=== PATIENT | female | born 1965 | race Caucasian/White ===

== ENCOUNTER 2019-05-29 18:44 | Emergency (ER) | payer OTHER ==
--- OUTSIDE RECORDS SUMMARY | 2019-05-29 18:47 | XMS REPORT ---
:1965 [facility] Address [address] [place] [address] Care Team Providers Name Role Phone SHANESIERRA DAMON Primary Care Provider Unavailable MARIIA SIMS M.D. Unavailable Unavailable CASSY MCCORMACK Unavailable Unavailable IVETT CHEEMA Unavailable Unavailable Problems This patient has no known problems. Allergies, Adverse Reactions, Alerts This patient has no known allergies or adverse reactions. Medications This patient has no known medications. Encounters Start End Encounter Admission Attending Care Care Encounter Date/Time Date/Time Type Type Clinicians Facility Department ID 2016-12-02 2016-12-02 Inpatient [facility] [id number] 16:04:00 16:04:00 2016-11-16 2016-11-16 Emergency [facility] [id number] 01:31:00 01:31:00 2016-10-06 2016-10-10 [place] 1 [place] [facility] [id number] 01:45:00 14:23:00 CASSY 2016-09-13 2016-09-13 Outpatient 3 CHRISTO CHEEMA [id number] 06:12:00 08:12:00 IVETT 2016-08-09 2016-08-09 Outpatient 3 CHRISTO CHEEMA [id number] 05:55:00 05:55:00 IVETT Results Test Description Test Time Test Comments Text Results Atomic Results Result Comments HEPATITIS C ANTIBODY 2018-02-13 14:43:00 Test Item Value Reference Range Comments HCV (test code=HCV) NEGATIVE NEGATIVE Hepatitis C Antibody test is for screening purposes only. All reactives will be confirmed by additional testing. QUANTIFERON TB [id number] 11:48:00 Test Item Value Reference Range Comments TBQF (test code=TBQF) NEGATIVE NEGATIVE TESTING [place] [address] (RESULTS AVAILABLE UNDER SEPARATE COVER) HEPATITIS B SURFACE [id number] 13:48:00 Test Item Value Reference Range Comments HBSAB (test code=HBSAB) NEGATIVE NEGATIVE HEPATITIS B SURFACE ANTIBODY INTERPRETATION: NEGATIVE: <5.00 MIU/ML ANTI-HBS. PATIENT IS PRESUMED TO BE NOT IMMUNE TO INFECTION WITH HBV. INDETERMINATE: >5-<10 MIU/ML. UNABLE TO DETERMINE IF ANTI-HBs IS PRESENT AT LEVELS CONSISTANT WITH IMMUNITY. PATIENT'S IMMUNE STATUS SHOULD BE FURTHER ASSESSED BY CONSIDERING OTHER CLINICAL INFORMATION OR RETESTING ANOTHER SPECIMEN DRAWN AT A LATER TIME. POSITIVE: ANTI-HBS DETECTED AT >10 MIU/ML. PATIENT IS CONSIDERED TO BE IMMUNE TO INFECTION WITH HBV. IT HAS NOT BEEN DETERMINED WHAT THE CLINICAL SIGNIFICANCE IS FOR VALUES GREATER THAN OR EQUAL TO 12 MLU/ML OTHER THAN THE INDIVIDUAL IS CONSIDERED TO BE IMMUNE TO HBV INFECTION. HEPATITIS B SURF [id number] 13:48:00 Test Item Value Reference Range Comments HEPBSAG (test code=HEPBSAG) NEGATIVE NEGATIVE Hepatitis B Surface Antigen is for screening purpose only. All reactives will be sent to reference lab for confirmation. 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) CHLORIDE (test code=CL) 101 MMOL/L 98-107 CO2 (test code=CO2) 28 MMOL/L 22-30 BUN (test code=BUN) 14 MG/DL 7-17 CREA (test code=CREA) 0.6 MG/DL 0.7-1.2 GLUCOSE (test 94 MG/DL 70-99 Fasting glucose normal code=GLUCOSE) <100 MG/DL- [employer] recommendation CALCIUM (test 9.7 MG/DL 8.4-10.2 code=CABLOOD) TOTPROT (test 8.5 G/DL 6.3-8.2 code=TOTPROT) ALBUMIN (test 4.9 G/DL 3.5-5.0 code=ALBSERUM) BILITOT (test 0.3 MG/DL 0.2-1.3 code=BILITOT) AST (test code=AST) 36 U/L 15-46 PHOSALK (test 93 U/L 38-126 code=PHOSALK) ALT (test code=ALT) 41 U/L 13-69 GFR (test code=GFR) 112 mL/min/1.73m2 A GFR of >90 mL/min/1.73m2 is considered normal. SEDIMENTATION [id number] 12:33:00 Test Item Value Reference Range Comments SED RATE (test code=ESR) 29 MM/HR 0-20 [id number] 12:04:00 Test Item Value Reference Range Comments WBC (test code=WBC) 9.2 K/UL 3.5-10.9 RBC (test code=RBC) 4.02 M/UL 4.0-5.0 HGB (test code=HGB) 13.3 G/DL 11.5-15.5 HCT (test code=HCT) 37.8 % 34-46 MCV (test code=MCV) 94.0 FL 80-98 MCH (test code=MCH) 33.1 PG 28-32 MCHC (test code=MCHC) 35.2 G/DL 32.5-36.5 RDW (test code=RDW) 13.2 % 11.5-14.5 PLT (test code=PLT) 334 K/UL 150-450 MPV (test code=MPV) 10.6 FL 7.4-10.4 MANDIFF (test code=MANDIFF) NO SCAN (test code=SCAN) NO NEUT% (test code=NEUT%) 64.9 % 40-75 LYMPH% (test code=LYMPH%) 24.3 % 24-44 MONO% (test code=MONO%) 8.3 % 0-13 EOS% (test code=EOS%) 1.7 % 0-4 BASO % (test code=BASO%) 0.3 % 0-2 IG% (test code=IG%) 0.5 % 0-1 IG%=Metamyelocytes, Myelocytes, and Promyelocytes. (Immature neutrophils not including "bands".) > 3% IG indicates risk of sepsis NRBC% (test code=NRBC%) 0 /100 WBC ABS NEUT (test code=NEUT) 5.9 K/UL 1.2-7.2 XR ABDOMEN [id number] 08:05:16Information: Small bowel obstruction and nasogastric tube.Abdomen 2 viewsIn comparison to the prior view the abdomen dated 12/03/2016 there hasbeen slight decrease in the gaseous distention of the smallbowel.Residual gas, fecal matter and contrast medium is demonstrated withinthe colon. The nasogastric tube is unchanged in position. Surgical clipswithin the right upper quadrant of the abdomen and lumbar spinedecompression laminectomy and fusion is again noted.IMPRESSION:1. Mild further decrease in the gaseous distention of the small bowel.2. No change in the position of the nasogastric tube. See above.XR ABDOMEN KUB [id number] 05: 30:54History: Nasogastric tube placement, small bowel obstructionABDOMEN KUB, at 2202 hours:COMPARISON: Abdominal x-ray done earlier the same day.A nasogastric tube is now seen with the tip in the area of the distalduodenum.There is a mild decrease in small bowel distention. Air is seen innondistended colon. Some contrast material is seen in the colon, relatedto a recent CT scan. Contrast material is alsoseen in the urinarybladder.Fusion rods are seen in the lower lumbar spine.IMPRESSION:1. Nasogastric tube as described.2. Mild decrease in small bowel distention.Preliminary report was faxed to the medical surgical nursing station byDr. Gregory at 2221 hours.44254& amp;PELVIS W/[id number] 16:25:07CT ABDOMEN AND CT PELVIS WITH CONTRAST: HISTORY: Abdominal pain, nausea and vomiting, hernia repair on 2016COMPARISON: CT of 01/29/2016. Abdominal x-ray done earlier today.Multiple transverse imageswere obtained through the upper abdomen andthrough the pelvis during rapid intravenous administration of 100 mL ofIsovue-300 contrast material. Oral contrast material was alsoadministered. Radiation reduction was achieved by using automaticexposure control, adjusting the mA according to the patient's size.A calcified granuloma seen in the right lower lobe. Mild scarring isseen in the left lower lobe.A nasogastric tube is coursing into thefundus of the stomach.No focal abnormalities are seen in the liver. The gallbladder has beensurgically removed. The spleen is unremarkable. The pancreas has anormal appearance. No abnormalities are seen in the kidneys. No enlarged lymph nodes areseen in the upper abdomen or pelvis.There is considerable distention of the small bowel. The patient appearsto havehad a right colon resection, with anastomotic sutures seen onthe right side of the abdomen. The residual colon does not appeardistended. A moderate amount of fecal material is seen in the colon. Asmallamount of ascites is seen in the upper abdomen and pelvis.There is an elongated density in the subcutaneous soft tissues of theleft mid abdominal wall, unchanged since the previous study. This canrepresent scar tissue. No abdominal wall hernia is identified at thistime by CT.No masses are seen in the pelvis. Postoperative changes are seen in thelower lumbar spine.IMPRESSION: 1. Considerable distention of the small bowel that can indicate apartial small bowel obstruction, unchanged since the previous abdominalfilms.2. Small amount of ascites. 3. Evidence of previous graft right colectomy.XR ABDOMEN KUB [id number] 11:37:59History: Nasogastric tube placement, small bowel obstructionABDOMEN KUB:COMPARISON: Abdominal film done earlier the same day.A nasogastric tube is now seen with the tip in the area of the fundus ofthe stomach.Persistent small bowel distention is observed. Some air is seen inundistended colon.Evidence of previous lumbar surgery is again noted.IMPRESSION:Nasogastric tube coursing into the stomach area.Persistent small boweldistention.XR ABDOMEN [id number] 08:32:14HISTORY: Small bowel obstruction, nasogastric tubeABDOMEN COMPLETE (supine and upright): COMPARISON: 12/02/2016Supine and upright views were obtained.A nasogastric tube is now seen with the tip in the area of thegastroesophageal junction.There has been considerable decrease in small bowel distention, withmild residual distention remaining. Air is seen in nondistended colon..No free air or mass effect isseen. No abnormal calcifications are noted. Surgical clips are seen in theright upper quadrant.Postsurgical changes are seen in the lumbar spine.IMPRESSION: 1. Improvement in small bowel distention.2.Nasogastric tube as described.Report was called to Sushma ATKINSON of the medical surgical nursing stationby Dr. Pederson at 0836 hours on 12/03/2016.XR ABDOMEN [id number] 10 :09:50History:: Abdominal pain and constipationAbdomen 2 viewsCorrelation was made with the patient's prior views of the abdomen dated01/29/2016 demonstrating multiple gas distended loops of small bowel withmultiple air-fluid levels. Some residual gas and fecal matter notedthroughout the colon. Nonspecific gastric air -fluid level identified. Nogross free intraperitoneal air is noted. Surgical clips are identifiedwithin the right upper quadrant of the abdomen. Lumbar spine fusion isagain demonstrated.IMPRESSION:1. Multiple gas distended loops of small bowel with multiple air-fluidlevels highly suspicious for at least a partial mechanical obstruction2. Retained fecal matter and gas within the colon3. Nonspecific gastric air-fluid level4. Status post cholecystectomy5. Status post lumbar spine fusion.XR CHEST SGL 1V, [id number] 07:24:43XR CHEST SGL 1V, FRONTALDIAGNOSIS: Chest painThe heart and mediastinum are stable. A left lower lobeopacity hasdeveloped since 06/20/2014, pneumonia would be a prime consideration.The remainder the chest is normal.IMPRESSION: Left lower lobe opacity, most likely pneumonia developingsince 06/20/2014.CT ABDOMEN/ PELVIS [id number] 00:58:00[address] [address]HJUOXBQHHO IMAGING REPORTPatient Name: IGOR LOW SDate of Service: 42-11-7986Fka: 51 Sex: F Order #: [id number] Room: ERSDOB : 1965 X-Ray Number: [id number] Record Number: [id number] Hospital Number: [id number] Physician: KANWAL PENNOrdering Physician : ZULMA DELUCA abdomen and pelvis withIV contrast 2359 hours 2016HISTORY: Acute abdominal pain and distention, history of rheumatoidarthritis , multiple prior abdominal surgeries, previous partial bowelresectionCOMPARISON : CT scan from10/05/2016FINDINGS: There is no free fluid and no appreciable acute inflammation. Nomass or abscess is seen. There is no significant bowel dilation. There aremoderate colonic feces without impaction or fecal stasis. Gallbladder isabsent. Bile ducts and pancreas appear normal. Both kidneys excretepromptly. There are background chronic changesIMPRESSION: No adverse changeElectronically Signed By: Graham Mejia M.D., 10/17/2016 12:55 AMLegally authenticated by TATY SHAIKH 2016-10-17 00:55:36ABDOMEN 2 [id number] 23:48:00[place] [id number] IMAGING REPORTPatient Name: IGOR LOW SDate of Service: 10-16Age: 51 Sex: F Order #: [id number] Room: ERSDOB: 1965 X-Ray Number: [id number] Record Number: [id number] Hospital Number: [id number] Physician: KANWAL PENNOrdering Physician: Adria DELUCA 2 views 2253 hours10/16/2016HISTORY: Abdominal pain and distention, prior spine surgery and herniasurgeryCOMPARISON: 10/08/2016FINDINGS: There is moderate bowel gas, mainly in the large bowel, withoutsignificant dilation.A few air-fluid levels are visualized. There arescattered feces. There is no free air. There has been spine surgery, alsocholecystectomy.IMPRESSION: The bowel gas pattern is nonspecific but does not suggestobstructionElectronically Signed By: Graham Chan M.D., 10/16/2016 11:46 PMLegally authenticated by TATY SHAIKH 2016-10-16 23:46:21ABDOMEN 2 [id number] 12:35:00[place] [id number] IMAGING REPORTPatient Name: IGOR LOW APOLLOate of Service: 08-09-5394Lnm: 51 Sex: F Order #: [id number] [facility] 2NEDOB: 1965 X-Ray Number: [id number] Record Number: [id number] Hospital Number: [id number] Physician: Lili MCCORMACK Physician: No SILVERMAN 2 views 11: 43AMComparisons: 02/03/2016History: Abdominal pain, possible small bowel obstruction versus ileus.Findings:Bowel gas pattern is nonspecific, nonobstructive.There is no free air or mass effect.No definite renal or ureteral calcifications are seen overlying the kidneysor expected course of ureters.There are postoperative changes of the lumbar spine.Impression:No definite acute intra-abdominal abnormality.Electronically Signed By: Jeromy Michelle M.D., 10/08/2016 12:32 PMLegally authenticated by MAURICE NUÑEZ 2016-10-08 12:32:33CT ABDOMEN/PELVIS [id number] 22:59:[address] [address]KMCZSSECJZ IMAGING REPORTPatient Name : IGOR LOW SDate of Service: 34-37-1532Isx: 51 Sex: F Order #: [id number] Room: [facility]: 1965 X-Ray Number: [id number] Record Number: [id number] Hospital Number: [id number] Physician: SONI HAYES - Ordering Physician: James VASQUEZ CT abdomen and pelvis with IV contrast at 2201 hoursHistory: Abdomen and back pain with constipation. Recent hernia repair.Prior cholecystectomy, hysterectomy, appendectomy and partial colectomy.Inflammatory bowel syndrome. Prior pain pump placement and removal.Comparison: 09/25/2016This CT exam was performed using one or more of the following dosereduction techniques: Automated exposure control, adjustment of the mAand/or kV according to patient size, or use of iterative reconstructiontechnique.Heart size is stable. Right lung base calcified granuloma is again seen.There are stable postsurgical and degenerative changes of the lumbar spine.Postsurgical changes at the left mid abdomen subcutaneous soft tissuesarealso again noted.The gallbladder has been removed. Other intra- abdominal organs are stable.Some fluid is scattered throughout small bowel loops. Some of the proximalsmall bowel loops are mildly dilated. There is evidence of prior bowelsurgery. Some stool is scattered throughout the remaining colon.No clearpoint of high-grade bowel obstruction is seen at this time. Fluid in bowelloops may be due to an element of gastroenteritis.A few small lymph nodes are scattered in the mesenteric fat once again.These are nonspecific.No free air or fluid.Urinary bladder is within normal limits. Ovaries may have been removed withthe uterus.Moderate scattered atherosclerotic disease is present.IMPRESSION:Fluid throughout mildly distended bowel loops which may be due to anelement of gastroenteritis or ileus. Mild fecal stasis. If there is furtherconcern, short interval follow-up may be helpful.Other stable findings as discussed.Electronically Signed By: Timi Gonzalez M.D., 2016 10:57 PMLegally authenticated by RICARDO MICHAUD 2016-10-05 22:57:24Z-ORG SCREEN MAMMO TAMEKA AND [id number] 13:44:[address] [address]HURGBCCWPL IMAGING REPORTPatient Name : IGOR LOW SDate of Service: 29-14-8210Sxf: 51 Sex: F Order #: [id number] Room: OPODOB: 1965 X-Ray Number: [id number] Record Number: [id number] Hospital Number: [id number] Physician: Anand HOPPER Physician: LILO HOPPER DIGITAL SCREENING MAMMOGRAPHY WITH TOMOSYNTHESIS AND CADCOMPARISON: None available.TECHNIQUE: Craniocaudal and oblique mediolateral tomosynthesis wasperformed. Craniocaudal 2-D images were also obtained. CAD data areevaluated.FINDINGS: The breasts are heterogeneously extremely dense, which limitsmammographic sensitivity. There are small benign calcificationsbilaterally. No obvious mass lesions are seen in this dense irregularbackground.IMPRESSION:No mammographic evidence of malignancy.Recommendation: Routine screeningmammography in one yearBI-RADS CATEGORY 2: Benign findings.FINANCIAL AID ADVISOR: RT Roxanna ALFARO)PLEASE NOTE:1. In up to 10% of patients, cancers are not visible on mammography.2. If a suspicious lump is palpated, biopsy should not be deferredbecause of a negative mammogram.MAMMOGRAPHY AT [facility] IS ACCREDITED BY THE [employer] COLLEGE OFRADIOLOGYTHANK YOU FOR YOUR OUTPATIENT REFERRALjhbElectronically Signed By: Bert Malagon M.D., 09/28/2016 1:42 PMLegally authenticated by AURLEIO SOSA 2016-09-28 13:42:08CT ABDOMEN/PELVIS [id number] 17:12:[address] [id number] IMAGING REPORTPatient Name: IGOR LOW of Service: 38-89-9226Nwz: 51 Sex: F Order #: [id number] [facility] 1965 [facility] Number: [id number] Record Number: [id number] Hospital Number: [id number] Physician: Leni WALLing Physician: GRIFFIN PADILLA abdomen and pelvis with contrast, 09/25/2016, 1553 hoursHistory: Abdominal pain. Status post surgery. Recent hernia mesh placement.Colon resection.Technique: IV contrast. Axial tomographic images are performed. [place] coronal formatted images are also reviewed. This CT exam was performedusing one or more of the following dose reduction techniques: Automatedexposure control, adjustment of the MA and/ or KV according to patient sizeor use of iterative reconstruction technique.Comparison: 08/16/2016.Findings: Since prior, there is presumed periumbilical ventral herniarepair with placement of possible mesh. Small pancake shaped hypodensefluid collection has developed within the mesh/ subcutaneous periumbilicalcompartment measuring on the order of 7.1 x 1.5 x 6.8 cm. No gas formationis noted. No significant mass effect is seen. Stable presumed soft tissuescarring projects within the subcutaneous fat of the left lateralperiumbilical region.Postsurgical changes of presumed subtotal colectomy are evident as previousstudy. 4.1 cm second portion duodenal diverticulum is noted. There has beenprevious cholecystectomy with slight stable prominence of the 12 mm commonduct and some mild intrahepatic ductal prominence. No choledocholithiasisis evident. Liver, spleen, pancreas, adrenal glands and kidneys areotherwise maintained. There has been previous hysterectomy and presumedbilateral oophorectomy. Bladder is preserved.No lymphadenopathy, ascites nor free air is noted. There is mild tomoderate atherosclerotic calcification involving the normal size abdominalaorta and iliofemoral artery compartments.Posterior laminectomy and posterior spinal fusion changes are presentinvolving the L3-S1 level. There is stable grade 1 L3-4 anterolisthesis.Lung bases show calcified granuloma within the right lower lobe anteriorly.Some mild linear atelectasis and/or scarring of both lower lobes is seen.Impression:1. Presumed interval periumbilical ventral hernia repair with placement ofmesh. Small pancake shaped fluid projects within the mesh/ periumbilicalsubcutaneous fat compartment. Process could represent liquefying hematomaor postoperative seroma. Correlate clinically to rule out inflammatoryetiology. No obvious gas is noted however.2. Otherwise background chronic findings as discussed above.Electronically Signed By: Bert Crawley M.D., 09/25/2016 5:10 PMLegally authenticated by JOSE MIGUEL KEARNEY 2016-09-25 17:10:[id number] 13:16:00QRS Interval: 103msQT Interval: 390msQTC Interval : 442msP Bradley: 63degQRS Bradley: 53degT Wave Bradley: 49degP-R Interval: 198msecRR Interval: 779msecHeart Rate: 77bpmI 40 Bradley: 60degT 40 Bradley: 45degST Bradley: 47degEKG Severity: - NORMAL ECG -REPORT:Sinus rhythmHEPATITIS C ANTIBODY [id number] 08:54:00 Test Item Value Reference Range Comments SCRN HCV (test code=SCRN NEGATIVE NEGATIVE Hepatitis C Antibody test is for HCV) screening purposes only. All reactives will be confirmed by additional testing. ER SCREEN FOR HIV 08:15:00 Test Item Value Reference Range Comments HIV 1/2 AB (test NONREACTIVE NONREACTIVE This test is used for SCREENING code=SCRN HIV) purposes only. All reactive results are prelimenary and confirmation results will follow. CDIFF AMPLIFIED [id number] 12:58:00 Test Item Value Reference Range Comments C DIFFICILE TESTING ON NEGATIVE NEGATIVE PSEUDOMEMBRANOUS COLITIS, BY STOOL (test code=CDIFF) DEFINITION, IS DIARRHEA, IN PATIENTS OLDER THAN 6 MONTHS OF AGE, CAUSED BY LONG-TERM ANTIBIOTIC EXPOSURE. NON-DIARRHEAL STOOLS WILL NOT BE TESTED. C.DIFF LOT # (test [id number] code=CDIFFLOT) C. DIFF EXPIRATION DATE 07-08-2017 (test code=CDIFFEXP) CT ABDOMEN/PELVIS [id number] 15:02:[address] [id number] IMAGING REPORTPatient Name : IGOR LOW SDate of Service: 21-08-8830Xmh: 51 Sex: F Order #: [id number] [facility] 1965 X-Ray Number: [id number] Record Number: [id number] Hospital Number: [id number] Physician: Paramjit DESHPANDEing Physician: LIZA DESHPANDE abdomen pelvis with contrast 08/16/2016:Abdominal distention, cramping, IBS. Colon resection.IV contrast administered.Axial tomographic images were obtained. Sagittal and coronal reformatimages were provided. This CT exam was performed using one or more of thefollowing post reduction techniques: Automated exposure control, adjustmentof the MA and/or KV according to the patient's size, or use of iterativereconstruction technique.Comparison made to 04/11/2016 CT abdomen pelvis.There is a calcified granuloma laterally in the right middlelobe. There isquestionable 6 mm noncalcified pleural-based nodule posteriorly in the leftlower lobe,axial image 11, which was not evident on the prior study.The gallbladder is absent. The common bile duct and proximal intrahepaticbiliary radicles appear mildly prominent. No abnormality of the spleen,stomach, pancreas or adrenal glands. Small cortical cyst midpole leftkidney. Right kidney unremarkable. No aneurysm or adenopathy. There isatherosclerotic calcification.There are multiple fluid- filled loops of small bowel in the central andleft abdomen, which appear mildly dilated. There is fluid and gas in thecolon. The gas pattern is nonspecific. Adynamic ileus is favored. No bowelobstruction identified at this time.Postsurgical and degenerative changes seen in the spine. The uterus hasbeen are made.A 5.8 cm ovoid or linear focus of abnormal density is seen in thesubcutaneous tissue in the left anterior abdomen at the level of theumbilicus. This shows no significant change since 04/11/2016 CT scan. Thismay be related to postsurgical scarring or previous trauma, doubtfulclinical significance.Opinion:1. Cholecystectomy has been performed since April 14, 2016. Mildprominence of common bile duct and proximal intrahepatic biliary tree.Recommend laboratory correlation.2. Mildly dilated jejunum, fluid seen in the colon and small bowel. Mildileus is favored. Consider short-term follow-up.3. 6 mm noncalcified pleural-based nodular density posterior left lowerlobe, axial image 11. This is new compared to 2015. This couldrepresent a small area of atelectasis or scar. A significant pulmonarynodule is thought less likely but not entirely excluded. Consider chest CTto evaluate for additional pulmonary nodules.Electronically Signed By: Zeke Guerra M.D., 08/16/2016 2:59 PMLegally authenticated by REBECCA PALACIOS 08-16 14:59:[id number] 14:29:00 Test Item Value Reference Range Comments GLUCOSE (test code=URGLU) NEGATIVE MG/DL NEG-100 BILIRUBN (test code=URBILI) SMALL NEGATIVE KETONE (test code=URKET) 80 MG/DL NEGATIVE BLOOD (test code=URBLD) NEGATIVE UR PH (test code=URPH) 6.0 5.0-7.5 PROTEIN (test code=URPRO) NEGATIVE MG/DL NEGATIVE NITRITES (test code=URNIT) NEGATIVE NEGATIVE UROBILINGEN (test code=URURO) 0.2 EU/DL 0.2-1.0 LEUKOCYT (test code=URLEU) SMALL NEGATIVE UA COLOR (test code=UA COLOR) YELLOW YELLOW CLARITY (test code=CLARITY) CLOUDY CLEAR SP GRAV (test code=URSPGRAV) 1.060 1.000-1.025 UAMICRO (test code=UAMICRO) YES WBC (test code=URWBC) 26 /HPF 0-5 RBC (test code=URRBC) 1 /HPF 0-2 CASTS (test code=CAST) 10 /LPF 0-3 UR EPI (test code=EPI) 21 /LPF BACTERIA (test code=BACTERIA) NEGATIVE NONE [id number] 12:40:00 Test Item Value Reference Range Comments SODIUM (test code=NA) 140 MMOL/L 137-145 K+ (test code=KSERUM) 3.9 MMOL/L 3.5-5.1 PLEASE NOTE NEW REFERENCE RANGE(S) IN EFFECT EFFECTIVE 01/28/2010 - 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) CHLORIDE (test code=CL) 103 MMOL/L 98-107 CO2 (test code=CO2) 21 MMOL/L 22-30 BUN (test code=BUN) 12 MG/DL 7-17 CREA (test code=CREA) 0.7 MG/DL 0.7-1.2 GLUCOSE (test 77 MG/DL 70-99 Fasting glucose normal code=GLUCOSE) <100 MG/DL- [employer] recommendation CALCIUM (test 8.9 MG/DL 8.4-10.2 code=CABLOOD) TOTPROT (test 7.7 G/DL 6.3-8.2 code=TOTPROT) ALBUMIN (test 4.5 G/DL 3.5-5.0 code=ALBSERUM) BILITOT (test 0.5 MG/DL 0.2-1.3 code=BILITOT) AST (test code=AST) 89 U/L 15-46 PHOSALK (test 96 U/L 38-126 code=PHOSALK) ALT (test code=ALT) 58 U/L 13-69 GFR (test code=GFR) 94 mL/min/1.73m2 A GFR of >90 mL/min/1.73m2 is considered normal. [id number] 12:40:00 Test Item Value Reference Range Comments LIPASE (test code=LIPA) 57 U/L 23-300 [id number] 12:16:00 Test Item Value Reference Range Comments WBC (test code=WBC) 4.0 K/UL 3.5-10.9 RBC (test code=RBC) 4.14 M/UL 4.0-5.0 HGB (test code=HGB) 12.7 G/DL 11.5-15.5 HCT (test code=HCT) 38.3 % 34-46 MCV (test code=MCV) 92.5 FL 80-98 MCH (test code=MCH) 30.7 PG 28-32 MCHC (test code=MCHC) 33.2 G/DL 32.5-36.5 RDW (test code=RDW) 13.8 % 11.5-14.5 PLT (test code=PLT) 228 K/UL 150-450 MPV (test code=MPV) 9.9 FL 7.4-10.4 MANDIFF (test code=MANDIFF) NO SCAN (test code=SCAN) NO NEUT% (test code=NEUT%) 70.7 % 40-75 LYMPH% (test code=LYMPH%) 16.8 % 24-44 MONO% (test code=MONO%) 11.6 % 0-13 EOS% (test code=EOS%) 0.2 % 0-4 BASO % (test code=BASO%) 0.5 % 0-2 IG% (test code=IG%) 0.2 % 0-1 IG%=Metamyelocytes, Myelocytes, and Promyelocytes. (Immature neutrophils not including "bands".) > 3% IG indicates risk of sepsis NRBC% (test code=NRBC%) 0 /100 WBC ABS NEUT (test code=NEUT) 2.9 K/UL 1.2-7.2
[2019-05-29] MEDS ORDERED: ALBUTEROL 2.5 MG/3 ML NEB SOL ONE (19:36)
[2019-05-29] MEDS ORDERED: IPRATROPIUM BROM 0.5MG/2.5ML ONE (19:36)
--- NOTE | 2019-05-29 20:14 | RAD REPORT ---
EXAM DESCRIPTION: RAD - Chest Single View - 05/29/2019 7:57 pm CLINICAL HISTORY: CHEST PAIN Chest pain. COMPARISON: Chest Pa And Lat (2 Views) dated 01/22/2019 FINDINGS: Portable technique limits examination quality. Small calcified granuloma seen in the right lung base. Mild atelectasis suspected left lung base. The lungs otherwise clear. The heart is upper limit of normal in size. No displaced fractures.
--- NOTE | 2019-05-29 20:26 | ER ---
Nurse's Notes [facility] Name: Chanell Sanders Age: 53 yrs Sex: Female : 1965 Arrival Date: 05/29/2019 Time: 18:48 Bed 20 Private MD: Diagnosis: Acute bronchitis;Acute bronchitis, unspecified Presentation: 05/29 19:04 Presenting complaint: Nonproductive cough, SOB, chest congestion, sinus congestion, hb headache, nausea, body aches, and diarrhea x 1 week. Denies fever. Transition of care: patient was not received from another setting of care. Onset of symptoms was May 23, 2019. Risk Assessment: Do you want to hurt yourself or someone else? Patient reports no desire to harm self or others. Care prior to arrival: None. 19:04 Method Of Arrival: Ambulatory 19:04 Acuity: MARISOL 4 hb 19:45 Initial Sepsis Screen: Does the patient meet any 2 criteria? No. Patient's initial sepsis screen is negative. Does the patient have a suspected source of infection? Yes: Productive cough/pneumonia. 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 - Social history:: Smoking status: Patient uses tobacco products, smokes one-half pack cigarettes per day. - Ebola Screening: : No symptoms or risks identified at this time. Screenin:42 Abuse screen: Denies threats or abuse. Denies injuries from another. Nutritional wh screening: No deficits noted. Tuberculosis screening: No symptoms or risk factors identified. Fall Risk None identified. Assessment: 19:42 General: Appears in no apparent distress. Behavior is calm, cooperative, appropriate wh for age. Pain: Denies pain. Neuro: Level of Consciousness is awake, alert, obeys commands, Oriented to person, place, time, situation, Appropriate for age Reports headache. Neuro: Reports headache from coughing. Cardiovascular: Heart tones S1 S2 Capillary refill < 3 seconds. Respiratory: Reports cough that is congestion Airway is patent Respiratory effort is even, unlabored, Respiratory pattern is regular, symmetrical, Breath sounds are clear bilaterally. GI: Abdomen is flat, non-distended. : No signs and/or symptoms were reported regarding the genitourinary system. EENT: Throat is pink. Derm: Skin is intact, is healthy with good turgor, Skin is pink, warm \T\ dry. normal. Musculoskeletal: Circulation, motion, and sensation intact. 20:33 Reassessment: Patient appears in no apparent distress at this time. No changes from previously documented assessment. Patient and/or family updated on plan of care and expected duration. Pain level reassessed. Patient is alert, oriented x 3, equal unlabored respirations, skin warm/dry/pink. Patient states feeling better. Vital Signs: 19:05 BP 183 / 86; Pulse 88; Resp 20; Temp 97.7; Pulse Ox 98% on R/A; Weight 72.57 kg; Height hb 5 ft. 8 in. (172.72 cm); Pain 3/10; 19:45 BP 102 / 79; Pulse 82; Resp 18; Pulse Ox 98% on R/A; wh 19:05 Body Mass Index 24.33 (72.57 kg, 172.72 cm) hb ED Course: 18:48 Patient arrived in ED. mr 19:05 Triage completed. hb 19:05 Arm band placed on. hb 19:20 Nando Lagos is Primary Nurse. wh 19:25 Jose Raul Torres MD is Attending Physician. tw4 19:44 Patient has correct armband on for positive identification. Bed in low position. Call light in reach. Side rails up X 1. Pulse ox on. NIBP on. 19:57 CXR XRAY In Process Unspecified. EDMS 20:33 No provider procedures requiring assistance completed. Patient did not have IV access during this emergency room visit. Administered Medications: 19:37 Drug: DuoNeb (3:1) (2.5 mg - 0.5 mg) 3 ml Route: Nebulizer; wh 20:22 Follow up: Response: No adverse reaction Outcome: 20:25 Discharge ordered by . tw4 20:33 Discharged to home ambulatory. wh 20:33 Condition: stable 20:33 Discharge instructions given to patient, Instructed on discharge instructions, follow up and referral plans. medication usage, POC Acute Bronchitis Demonstrated understanding of instructions, follow-up care, medications, POC Prescriptions given X 4. 20:34 Patient left the ED. Signatures: Dispatcher [employer] Sandra Fiore Heather, RN RN hb Habalo, Winsy Jose Raul Torres MD MD tw4
--- NOTE | 2019-05-29 20:26 | EDPHYS ---
Physician Documentation [facility] Name: Chanell Sanders Age: 53 yrs Sex: Female : 1965 Arrival Date: 05/29/2019 Time: 18:48 Bed 20 Private MD: ED Physician Jose Raul Torres HPI: 05/29 20:20 This 53 yrs old Female presents to ER via Ambulatory with complaints of tw4 Congestion, Breathing Difficulty. 20:20 The patient has shortness of breath with light activity. tw4 20:20 Onset: The symptoms/episode began/occurred 1 week(s) ago. Duration: The symptoms are tw4 continuous. The patient's shortness of breath is aggravated by coughing, is alleviated by nothing. Associated signs and symptoms: Pertinent positives: diarrhea, body aches. Severity of symptoms: At their worst the symptoms were moderate in the emergency department the symptoms are unchanged. The patient has not experienced similar symptoms in the past. 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 - Social history:: Smoking status: Patient uses tobacco products, smokes one-half pack cigarettes per day. - Ebola Screening: : No symptoms or risks identified at this time. ROS: 20:20 Cardiovascular: Negative for chest pain, palpitations, and edema, Abdomen/GI: Negative tw4 for abdominal pain, nausea, vomiting, diarrhea, and constipation, Back: Negative for injury and pain, MS/Extremity: Negative for injury and deformity, Skin: Negative for injury, rash, and discoloration, Neuro: Negative for headache, weakness, numbness, tingling, and seizure. 20:20 Constitutional: Positive for body aches, fatigue, malaise, Negative for chills, fever, weight loss. 20:20 Respiratory: Positive for cough, "sounds productive", shortness of breath, Negative for dyspnea on exertion, hemoptysis, orthopnea, pleurisy, sputum production. Exam: 20:20 Constitutional: This is a well developed, well nourished patient who is awake, alert, tw4 and in no acute distress. Head/Face: Normocephalic, atraumatic. Chest/axilla: Normal chest wall appearance and motion. Nontender with no deformity. No lesions are appreciated. Cardiovascular: Regular rate and rhythm with a normal S1 and S2. No gallops, murmurs, or rubs. Normal PMI, no JVD. No pulse deficits. 20:20 Abdomen/GI: Soft, non-tender, with normal bowel sounds. No distension or tympany. No guarding or rebound. No evidence of tenderness throughout. Back: No spinal tenderness. No costovertebral tenderness. Full range of motion. MS/ Extremity: Pulses equal, no cyanosis. Neurovascular intact. Full, normal range of motion. Neuro: Awake and alert, GCS 15, oriented to person, place, time, and situation. Cranial nerves II-XII grossly intact. Motor strength 5/5 in all extremities. Sensory grossly intact. Cerebellar exam normal. Normal gait. 20:20 Respiratory: the patient does not display signs of respiratory distress, Respirations: normal, Breath sounds: wheezing: Vital Signs: 19:05 BP 183 / 86; Pulse 88; Resp 20; Temp 97.7; Pulse Ox 98% on R/A; Weight 72.57 kg; Height hb 5 ft. 8 in. (172.72 cm); Pain 3/10; 19:45 BP 102 / 79; Pulse 82; Resp 18; Pulse Ox 98% on R/A; wh 19:05 Body Mass Index 24.33 (72.57 kg, 172.72 cm) hb MDM: 19:29 Patient medically screened. tw4 20:20 Differential diagnosis: reactive airway disease. Antibiotic administration: The patient tw4 is discharged and will get outpatient antibiotics, Zithromax. Data reviewed: vital signs, nurses notes. Data reviewed: lab test result(s), Flu: negative. Data interpreted: Pulse oximetry: Interpretation: normal. Counseling: I had a detailed discussion with the patient and/or guardian regarding: the historical points, exam findings, and any diagnostic results supporting the discharge/admit diagnosis, lab results, radiology results. Special discussion: I discussed with the patient/guardian in detail that at this point there is no indication for admission to the hospital. It is understood, however, that if the symptoms persist or worsen the patient needs to return immediately for re-evaluation. 05/29 19:27 Order name: Flu tw4 05/29 19:27 Order name: CXR XRAY tw4 Administered Medications: 19:37 Drug: DuoNeb (3:1) (2.5 mg - 0.5 mg) 3 ml Route: Nebulizer; 20:22 Follow up: Response: No adverse reaction Disposition: 05/29/19 20:25 Discharged to Home. Impression: Acute bronchitis, Acute bronchitis, unspecified. - Condition is Stable. - Discharge Instructions: Acute Bronchitis, Adult. - Prescriptions for Tessalon Perles 100 mg Oral Capsule - take 1 capsule by ORAL route every 8 hours As needed; 15 capsule. Zithromax Z- Chauncey 250 mg Oral Tablet - take 1 tablet by ORAL route as directed for 5 days Day 1 - take two (2) tablets one time. Day 2, 3, 4 , 5 take one (1) tablet once daily.; 6 tablet. Albuterol Sulfate 90 mcg/actuation - inhale 1-2 puff by INHALATION route every 4-6 hours; 1 Inhaler. Guaifenesin AC 10- 100 mg/5 mL Oral Liquid - take 10 milliliter by ORAL route every 4 hours As needed; 240 milliliter. - Medication Reconciliation Form, Thank You Letter, Antibiotic Education, Prescription Opioid Use form. - Follow up: Private Physician; When: Upon discharge from the Emergency Department; Reason: Recheck today's complaints, Continuance of care. - Problem is new. - Symptoms have improved. Signatures: Dispatcher [employer] EDMS Judith Ramsay RN RN hb Habalo, Winsy Jose Raul Torres MD MD tw4 Corrections: (The following items were deleted from the chart) 20:21 20:20 Onset: The symptoms/episode began/occurred today, tw tw4 20:34 20:25 05/29/2019 20:25 Discharged to Home. Impression: Acute bronchitis; Acute wh bronchitis, unspecified. Condition is Stable. Forms are Medication Reconciliation Form, Thank You Letter, Antibiotic Education, Prescription Opioid Use. Follow up: Private Physician; When: Upon discharge from the Emergency Department; Reason: Recheck today's complaints, Continuance of care. Problem is new. Symptoms have improved. tw4
[2019-05-29 22:33] VITALS: TEMP 97.7; O2SAT 98
[2019-05-29 22:34] VITALS: BP 102/79
== END 2019-05-29 20:34 | disposition home or self-care (01) ==
LOC: ER 18:44
DX: J20.9 Acute bronchitis, unspecified (principal); F17.210 Nicotine dependence, cigarettes, uncomplicated
CPT/HCPCS: 71045; 87804; 94640; 99284

== ENCOUNTER 2019-08-11 07:52 | Emergency (ER) | payer OTHER ==
--- OUTSIDE RECORDS SUMMARY | 2019-08-11 07:55 | XMS REPORT ---
:1965 Author Organization [employer] Care Team Providers Name Role Phone Cabrera, Na Provider Role Unavailable Allergies No Known Allergies Problems Problem Type Condition Code Onset Dates Condition Status Problem Chronic pain syndrome G89.4 Active Problem Bipolar 1 disorder F31.9 Active Problem Acquired hypothyroidism E03.9 Active Problem Seasonal allergies J30.2 Active Problem Cigarette nicotine dependence F17.210 Active without complication Problem Lumbar degenerative disc disease M51.36 Active Problem Rheumatoid arthritis of multiple M05.79 Active sites without organ or system involvement with positive rheumatoid factor Problem Hyperlipidemia, mixed E78.2 Active Problem Pain in thoracic spine M54.6 Active Problem Low back pain M54.5 Active Problem Degenerative disorder of bone M89.8X9 Active Problem Rheumatoid arthritis involving M06.9 Active multiple sites, unspecified rheumatoid factor presence Assessment Hyperlipidemia, mixed E78.2 Active Problem Chronic fatigue R53.82 Active Problem Depression with anxiety F41.8 Active Medications Medication Code Code Instructions Start End Date Status Dosage System Date Simvastatin [facility] 68055081021 40 MG Orally Active 1 tablet in Once a day the evening Results No Known Results Summary Purpose [employer] Submission
--- OUTSIDE RECORDS SUMMARY | 2019-08-11 07:55 | XMS REPORT ---
:1965 Author Organization [employer] Care Team Providers Name Role Phone Cabrera, Na Provider Role Unavailable Allergies, Adverse Reactions, Alerts Substance Reaction Event Type N.K.D.A. Info Not Available Non Drug Allergy Problems Problem Type Condition Code Onset Dates Condition Status Problem Chronic pain syndrome G89.4 Active Problem Bipolar 1 disorder F31.9 Active Problem Acquired hypothyroidism E03.9 Active Problem Seasonal allergies J30.2 Active Assessment Seasonal allergies J30.2 Active Problem Cigarette nicotine dependence F17.210 Active without complication Problem Lumbar degenerative disc disease M51.36 Active Problem Rheumatoid arthritis of multiple M05.79 Active sites without organ or system involvement with positive rheumatoid factor Problem Hyperlipidemia, mixed E78.2 Active Problem Pain in thoracic spine M54.6 Active Problem Low back pain M54.5 Active Assessment Lumbar degenerative disc disease M51.36 Active Assessment Acquired hypothyroidism E03.9 Active Assessment Cigarette nicotine dependence F17.210 Active without complication Assessment Rheumatoid arthritis of multiple M05.79 Active sites without organ or system involvement with positive rheumatoid factor Problem Degenerative disorder of bone M89.8X9 Active Problem Rheumatoid arthritis involving M06.9 Active multiple sites, unspecified rheumatoid factor presence Assessment Hyperlipidemia, mixed E78.2 Active Problem Chronic fatigue R53.82 Active Problem Depression with anxiety F41.8 Active Medications Medication Code Code Instructions Start End Status Dosage System Date Date Zoloft ND 35880953069 25 MG Orally Active 1 tablet Once a day Vraylar [facility] 33594252289 3 MG Orally Active 1 capsule Once a day Simvastatin ND 88889326199 40 MG Orally Active 1 tablet in Once a day the evening PredniSONE ND 09754538250 10 MG Orally Active 1 tablet Once a day Remicade ND 27113269158 100 MG Active as directed Intravenous Amitriptyline ND 62167782608 10 MG Orally Active 1 tablet HCl Once a day Methotrexate ND 59326410991 2.5 MG Orally Active as directed (Anti-Rheumatic) Mobic ND 38514130317 15 MG Orally Active 1 tablet Once a day Results Name Result Date Reference Range Unit Abnormality Flag TSH W/REFLEX TO FT4 ----TSH W/REFLEX TO FT4 0.65 50983885 mIU/L N LIPID PANEL WITH REFLEX TO DIRECT LDL ----NON HDL CHOLESTEROL 196 02906738 <130 mg/dL (calc) H ----LDL-CHOLESTEROL 148 61756083 mg/dL (calc) H ----CHOL/HDLC RATIO 5.6 91176191 <5.0 (calc) H ----HDL CHOLESTEROL 43 81435078 >50 mg/dL L ----TRIGLYCERIDES 309 79055564 <150 mg/dL H ----CHOLESTEROL, TOTAL 239 92934847 <200 mg/dL H Summary Purpose [employer] Submission
--- OUTSIDE RECORDS SUMMARY | 2019-08-11 07:55 | XMS REPORT ---
:1965 Author Organization [employer] Care Team Providers Name Role Phone Cabrera, Na Provider Role Unavailable Allergies No Known Allergies Problems Problem Type Condition Code Onset Dates Condition Status Problem Chronic pain syndrome G89.4 Active Problem Bipolar 1 disorder F31.9 Active Problem Acquired hypothyroidism E03.9 Active Problem Degenerative disorder of bone M89.8X9 Active Problem Rheumatoid arthritis involving M06.9 Active multiple sites, unspecified rheumatoid factor presence Problem Chronic fatigue R53.82 Active Problem Depression with anxiety F41.8 Active Problem Seasonal allergies J30.2 Active Problem Cigarette nicotine dependence F17.210 Active without complication Problem Lumbar degenerative disc disease M51.36 Active Problem Rheumatoid arthritis of multiple M05.79 Active sites without organ or system involvement with positive rheumatoid factor Problem Hyperlipidemia, mixed E78.2 Active Problem Pain in thoracic spine M54.6 Active Problem Low back pain M54.5 Active Medications No Known Medications Results No Known Results Summary Purpose [employer] Submission
--- OUTSIDE RECORDS SUMMARY | 2019-08-11 07:55 | XMS REPORT ---
:1965 [facility] [address] [place] [address] Care Team Providers Name Role Phone SHANE SIERRA Primary Care Provider Unavailable MARIIA SIMS M.D. [...] ID 2016-12-02 2016-12-02 Inpatient [facility] [id number] 16:04:00 16:04:00 2016-11-16 2016-11-16 Emergency [facility] [id number] 01:31:00 01:31:00 2016-10-06 2016-10-10 Inpatient 1 CHRISTO MCCORMACK [facility] [id number] 01:45:00 14:23:00 CASSY 2016-09-13 2016-09-13 Outpatient 3 CHRISTO CHEEMA [id number] 06:12:00 08:12:00 IVETT 2016-08-09 2016-08-09 Outpatient 3 CHRISTO CHEEMA [id number] 05:55:00 05:55:00 IVETT Results Test Description Test Time Test Comments Text Results Atomic Results Result Comments HEPATITIS C ANTIBODY 2018-02-13 14:43:00 Test Item Value Reference Range Comments HCV (test code=HCV) NEGATIVE NEGATIVE Hepatitis C Antibody test is for screening purposes only. All reactives will be confirmed by additional testing. QUANTIFERON TB [id number] 11:48:00 Test Item Value Reference Range Comments TBQF (test code=TBQF) NEGATIVE NEGATIVE [place] [address] (RESULTS AVAILABLE UNDER SEPARATE COVER) HEPATITIS B SURFACE [id number] 13:48:00 Test Item Value Reference Range Comments [...] IMMUNE TO HBV INFECTION. HEPATITIS B SURF [id number] 13:48:00 Test Item Value Reference Range Comments HEPBSAG (test code=HEPBSAG) NEGATIVE NEGATIVE Hepatitis B Surface Antigen is for screening purpose only. All reactives will be sent to reference lab for confirmation. HEP B CORE AB [id number] 13:48:00 Test Item Value Reference Range Comments HEP B CORE AB, TOTAL (test code=HBCABTOT) NEGATIVE NEGATIVE [id number] 13:47:00 Test Item Value Reference Range Comments SODIUM (test code=NA) 137 MMOL/L 137-145 K+ (test code=KSERUM) 5.1 MMOL/L 3.5-5.1 PLEASE NOTE NEW REFERENCE RANGE(S) IN EFFECT EFFECTIVE 01/28/2010 - NEW ANALYZER (VITROS 5600) CHLORIDE (test code=CL) 101 MMOL/L 98-107 CO2 (test code=CO2) 28 MMOL/L 22-30 BUN (test code=BUN) 14 MG/DL 7-17 CREA (test code=CREA) 0.6 MG/DL 0.7-1.2 GLUCOSE (test 94 MG/DL 70-99 Fasting glucose normal code=GLUCOSE) <100 MG/DL- [employer] recommendation CALCIUM (test 9.7 MG/DL 8.4-10.2 code=CABLOOD) TOTPROT (test 8.5 G/DL 6.3-8.2 code=TOTPROT) ALBUMIN (test 4.9 G/DL 3.5-5.0 code=ALBSERUM) BILITOT (test 0.3 MG/DL 0.2-1.3 code=BILITOT) AST (test code=AST) 36 U/L 15-46 PHOSALK (test 93 U/L 38-126 code=PHOSALK) ALT (test code=ALT) 41 U/L 13-69 GFR (test code=GFR) 112 mL/min/1.73m2 A GFR of >90 mL/min/1.73m2 is considered normal. SEDIMENTATION [id number] 12:33:00 Test Item Value Reference Range Comments SED RATE (test code=ESR) 29 MM/HR 0-20 [id number] 12:04:00 Test Item Value Reference Range Comments [...] (test code=NEUT) 5.9 K/UL 1.2-7.2 XR ABDOMEN [id number] 08:05:16Information: Small bowel obstruction and nasogastric tube.Abdomen [...] the nasogastric tube. See above.XR ABDOMEN KUB [id number] 05: 30:54History: Nasogastric tube placement, small bowel [...] surgical nursing station byDr. Gregory at 2221 hours.10294& amp;PELVIS W/[id number] 16:25:07CT ABDOMEN AND CT PELVIS WITH CONTRAST: [...] of previous graft right colectomy.XR ABDOMEN KUB [id number] 11:37:59History: Nasogastric tube placement, small bowel obstructionABDOMEN KUB:COMPARISON: Abdominal film done earlier the same day.A nasogastric tube is now seen with the tip in the area of the fundus ofthe stomach.Persistent small bowel distention is observed. Some air is seen inundistended colon.Evidence of previous lumbar surgery is again noted.IMPRESSION:Nasogastric tube coursing into the stomach area.Persistent small boweldistention.XR ABDOMEN [id number] 08:32:14HISTORY: Small bowel obstruction, nasogastric tubeABDOMEN COMPLETE [...] Pederson at 0836 hours on 12/03/2016.XR ABDOMEN [id number] 10 :09:50History:: Abdominal pain and constipationAbdomen 2 [...] post lumbar spine fusion.XR CHEST SGL 1V, [id number] 07:24:43XR CHEST SGL 1V, FRONTALDIAGNOSIS: Chest painThe heart and mediastinum are stable. A left lower lobeopacity hasdeveloped since 06/20/2014, pneumonia would be a prime consideration.The remainder the chest is normal.IMPRESSION: Left lower lobe opacity, most likely pneumonia developingsince 06/20/2014.CT ABDOMEN/ PELVIS [id number] 00:58:[address] [id number] IMAGING REPORTPatient Name: IGOR LOW SDate of Service: 74-59-5238Afv: 51 Sex: F Order #: [id number] Room: ERSDOB : 1965 X-Ray Number: [id number] Record Number: [id number] Hospital Number: [id number] Physician: KANWAL PENNOrdering Physician : ZULMA DELUCA [...] authenticated by TATY SHAIKH 2016-10-17 00:55:36ABDOMEN 2 [id number] 23:48:00BAPTFel[place] [id number] IMAGING REPORTPatient Name: IGOR LOW APOLLOate of Service: 10-16Age: 51 Sex: F Order #: [id number] Room: ERSDOB: 1965 X-Ray Number: [id number] Record Number: [id number] Hospital Number: [id number] Physician: KANWAL PENNOrdering Physician: Adria DELUCA 2 [...] authenticated by TATY SHAIKH 2016-10-16 23:46:21ABDOMEN 2 [id number] 12:35:00[place] [id number] IMAGING REPORTPatient Name: IGOR LOW APOLLOate of Service: [id number]: 51 Sex: F Order #: [id number] Room: [facility] 2NEDOB: 1965 X-Ray Number: [id number] Record Number: [id number] Hospital Number: [id number] Physician: Lili MCCORMACK Physician: No SILVERMAN 2 [...] authenticated by MAURICE NUÑEZ 2016-10-08 12:32:33CT ABDOMEN/PELVIS [id number] 22:59:[address] [id number] IMAGING REPORTPatient Name : IGOR LOW SDate of Service: 21-20-6395Zqr: 51 Sex: F Order #: [id number] [facility] 1965 [facility] Number: [id number] Record Number: [id number] Hospital Number: [id number] Physician: SONI HAYES - Ordering Physician: James [...] MICHAUD 2016-10-05 22:57:24Z-ORG SCREEN MAMMO TAMEKA AND [id number] 13:44:[address] [id number] IMAGING REPORTPatient Name : IGOR LOW SDate of Service: 28-66-3186Qot: 51 Sex: F Order #: 100 Room: OPODOB: 1965 X-Ray Number: [id number] Record Number: [id number] Hospital Number: [id number] Physician: Anand HOPPER Physician: LILO HOPPER DIGITAL [...] screeningmammography in one yearBI-RADS CATEGORY 2: Benign findings.BIODIESEL PRODUCTION TECHNICIAN: RT Roxanna ALFARO (M)PLEASE NOTE:1. In up to 10% of patients, cancers are not visible on mammography.2. If a suspicious lump is palpated, biopsy should not be deferredbecause of a negative mammogram.MAMMOGRAPHY AT [facility] IS ACCREDITED BY THE [employer] OFRADIOLOGYTHANK YOU FOR YOUR OUTPATIENT REFERRALjhbElectronically Signed By: Bert Malagon M.D., 09/28/2016 1:42 PMLegalldestini authenticated by AURELIO SOSA 2016-09-28 13:42:08CT ABDOMEN/PELVIS [id number] 17:12:[address] [id number] IMAGING REPORTPatient Name: IGOR LOWate of Service: 22-58-5690Qhv: 51 Sex: F Order #: [id number] [facility] 1965 [facility] Number: [id number] Record Number: [id number] Hospital Number: [id number] Physician: BLAKE WALLOrdering Physician: GRIFFIN PADILLA abdomen and pelvis with [...] PMLegally authenticated by JOSE MIGUEL KEARNEY 2016-09-25 17:10:[id number] 13:16:00QRS Interval: 103msQT Interval: 390msQTC Interval : 442msP [place]: 63degQRS [place]: 53degT Wave [place]: 49degP-R Interval: 198msecRR Interval: 779msecHeart Rate: 77bpmI 40 [place]: 60degT 40 [place]: 45degST [place]: 47degEKG Severity: - NORMAL ECG -REPORT:Sinus rhythmHEPATITIS C ANTIBODY [id number] 08:54:00 Test Item Value Reference Range Comments [...] and confirmation results will follow. CDIFF AMPLIFIED [id number] 12:58:00 Test Item Value Reference Range Comments C DIFFICILE TESTING ON NEGATIVE NEGATIVE PSEUDOMEMBRANOUS COLITIS, BY STOOL (test code=CDIFF) DEFINITION, IS DIARRHEA, IN PATIENTS OLDER THAN 6 MONTHS OF AGE, CAUSED BY LONG-TERM ANTIBIOTIC EXPOSURE. NON-DIARRHEAL STOOLS WILL NOT BE TESTED. C.DIFF LOT # (test [id number] code=CDIFFLOT) C. DIFF EXPIRATION DATE 07-08-2017 (test code=CDIFFEXP) CT ABDOMEN/PELVIS [id number] 15:02:00[facility] [place] [id number] IMAGING REPORTPatient Name : IGOR LOW of Service: 76-68-6312Peg: 51 Sex: F Order #: [id number] [facility] 1965 [facility]Ray Number: [id number] Record Number: [id number] Hospital Number: [id number] Physician: Paramjit DESHPANDEing Physician: LIZA DESHPANDE abdomen [...] 2:59 PMLegally authenticated by REBECCA PALACIOS 08-16 14:59:[id number] 14:29:00 Test Item Value Reference Range Comments [...] 21 /LPF BACTERIA (test code=BACTERIA) NEGATIVE NONE [id number] 12:40:00 Test Item Value Reference Range Comments SODIUM (test code=NA) 140 MMOL/L 137-145 K+ (test code=KSERUM) 3.9 MMOL/L 3.5-5.1 PLEASE NOTE NEW REFERENCE RANGE(S) IN EFFECT EFFECTIVE 01/28/2010 - NEW ANALYZER (VITROS 5600) CHLORIDE (test code=CL) 103 MMOL/L 98-107 CO2 (test code=CO2) 21 MMOL/L 22-30 BUN (test code=BUN) 12 MG/DL 7-17 CREA (test code=CREA) 0.7 MG/DL 0.7-1.2 GLUCOSE (test 77 MG/DL 70-99 Fasting glucose normal code=GLUCOSE) <100 MG/DL- [employer] recommendation CALCIUM (test 8.9 MG/DL 8.4-10.2 code=CABLOOD) TOTPROT (test 7.7 G/DL 6.3-8.2 code=TOTPROT) ALBUMIN (test 4.5 G/DL 3.5-5.0 code=ALBSERUM) BILITOT (test 0.5 MG/DL 0.2-1.3 code=BILITOT) AST (test code=AST) 89 U/L 15-46 PHOSALK (test 96 U/L 38-126 code=PHOSALK) ALT (test code=ALT) 58 U/L 13-69 GFR (test code=GFR) 94 mL/min/1.73m2 A GFR of >90 mL/min/1.73m2 is considered normal. [id number] 12:40:00 Test Item Value Reference Range Comments LIPASE (test code=LIPA) 57 U/L 23-300 [id number] 12:16:00 Test Item Value Reference Range Comments [...]
[2019-08-11] MEDS ORDERED: KETOROLAC 30 MG/ML INJ ONE (08:28)
[2019-08-11] MEDS ORDERED: ONDANSETRON 4 MG (ODT) TAB ONE (08:29)
[2019-08-11] MEDS ORDERED: CEFTRIAXONE/SWI 1gm 1 GM/10 ML SYR ONE (08:43)
[2019-08-11] MEDS ORDERED: NA CHLORIDE 0.9% 1,000 ML ONE (08:43)
[2019-08-11 09:05] LABS: Absolute Lymphocytes (CBC) 0.3 K/uL (0.7-4.9); Basophils % 0.5 % (0-1.3); Hematocrit 36.1 % (36.0-45.0); Lymphocytes % 5.4 % (15.3-44.8); MPV 8.5 fL (7.6-11.3)
[2019-08-11 09:09] LABS: Protime INR 1.01
[2019-08-11 09:26] LABS: ALT/SGPT 26 U/L (12-78); AST/SGOT 17 U/L (15-37); Albumin 3.9 g/dL (3.4-5.0); Alkaline Phosphatase 64 U/L (45-117); BUN Blood Urea Nitrogen 18 mg/dL (7-18); Bicarbonate 24 mmol/L (21-32); Bilirubin Direct < 0.1 mg/dL (0-0.2); Bilirubin Total 0.3 mg/dL (0.2-1.0); Glucose Level 99 mg/dL (74-106); Magnesium 1.9 mg/dL (1.8-2.4); NT PRO-BNP 75 pg/mL (<125); Potassium 3.7 mmol/L (3.5-5.1); Protein, Total 7.3 g/dL (6.4-8.2); Sodium Level 135 mmol/L (136-145); Troponin (Emerg Dept Use Only) < 0.02 ng/mL (0.0-0.045)
--- NOTE | 2019-08-11 09:53 | ER ---
Nurse's Notes [facility] Name: Chanell Sanders Age: 54 yrs Sex: Female : 1965 Arrival Date: 08/11/2019 Time: 07:54 Bed 5 Private MD: Huong Cabrera Diagnosis: Influenza due to identified novel influenza A virus;Fever, unspecified;Weakness;Pneumonia due to other specified bacteria Presentation: 08/11 08:01 Presenting complaint: Patient states: headache, body aches, fever, cough, chills and ss sore throat that began last night. Transition of care: patient was not received from another setting of care. Onset of symptoms was August 10, 2019. Risk Assessment: Do you want to hurt yourself or someone else? Patient reports no desire to harm self or others. Initial Sepsis Screen: Does the patient meet any 2 criteria? HR > 90 bpm. Does the patient have a suspected source of infection? No. Patient's initial sepsis screen is negative. Care prior to arrival: None. 08:01 Method Of Arrival: Ambulatory ss 08:01 Acuity: MARISOL 4 ss Historical: - Allergies: 08:03 No Known Allergies; ss - PMHx: 08:03 RA; degenerative bone disease; ss - PSHx: 08:03 Breast biopsy; colon resection; Knee - Bilateral; Hysterectomy; Hernia repair; ss Appendectomy; Cholecystectomy; back; - Immunization history:: Adult Immunizations up to date. - Coronavirus screen:: The patient has NOT traveled to [place] in the past 14 days. Proceed with normal triage process as indicated. - Social history:: Smoking status: Patient denies any tobacco usage or history of. - Family history:: not pertinent. - Ebola Screening: : Patient denies exposure to infectious person Patient denies travel to an Ebola-affected area in the 21 days before illness onset. Screenin:05 Abuse screen: Denies threats or abuse. Denies injuries from another. Nutritional ch screening: No deficits noted. Tuberculosis screening: No symptoms or risk factors identified. Fall Risk None identified. Assessment: 08:03 General: Appears in no apparent distress. comfortable, Behavior is calm, cooperative, ch appropriate for age. Pain: Complains of pain in head, throat and back, generalized body aches. Neuro: No deficits noted. Cardiovascular: No deficits noted. Respiratory: Airway is patent Respiratory effort is even, unlabored, Breath sounds are clear bilaterally. GI: No signs and/or symptoms were reported involving the gastrointestinal system. : No signs and/or symptoms were reported regarding the genitourinary system. EENT: Oral mucosa is moist. Good dentition noted. Throat is pink Reports nasal congestion nasal discharge pain when swallowing pt reports generalized bodyaches, "not feeling well. Derm: Skin is pink, warm \\T\\ dry. Musculoskeletal: No signs and/or symptoms reported regarding the musculoskeletal system. 08:58 Reassessment: Patient appears in no apparent distress at this time. Patient and/or ch family updated on plan of care and expected duration. Pain level reassessed. Patient is alert, oriented x 3, equal unlabored respirations, skin warm/dry/pink. awaiting results. 09:35 Reassessment: rates pain 5/10, request something else for pain, provider notified. em 10:07 Reassessment: BP 97/67, provider notified, changed order to fentanyl 25 mcg. em 10:28 Reassessment: pain has improved, rates 3/10, comfortable enough to go home, wheeled out em via wheelchair Patient states feeling better. Patient states symptoms have improved. Vital Signs: 08:03 BP 100 / 67; Pulse 108; Resp 17; Temp 98.8(O); Pulse Ox 96% on R/A; Weight 70.31 kg; ss Height 5 ft. 8 in. (172.72 cm); Pain 7/10; 09:34 BP 123 / 74; Pulse 92; Resp 20; Pulse Ox 95% on R/A; Pain 5/10; em 10:05 BP 97 / 67; Pulse 83; Resp 18; Pulse Ox 95% on R/A; Pain 5/10; em 10:24 BP 104 / 74; Pulse 84; Resp 18; Pulse Ox 99% on R/A; Pain 3/10; em 08:03 Body Mass Index 23.57 (70.31 kg, 172.72 cm) ED Course: 07:54 Patient arrived in ED. rg4 07:54 Huong Cabrera MD is Private Physician. rg4 07:55 David Yadav MD is Attending Physician. [facility] 07:56 Pankaj Murphy RN is Primary Nurse. em 08:02 Triage completed. 08:03 Arm band placed on right wrist. ss 08:05 Patient has correct armband on for positive identification. Bed in low position. Call light in reach. Side rails up X 1. Adult w/ patient. Pulse ox on. NIBP on. Warm blanket given. Pillow given. 09:05 EKG done, by ED staff, reviewed by David Yadav MD. kj1 09:41 replenishment specialist on. ch 09:51 Huong Cabrera MD is Referral Physician. brittany 10:25 No provider procedures requiring assistance completed. IV discontinued, intact, em bleeding controlled, No redness/swelling at site. Pressure dressing applied. Administered Medications: 08:27 Drug: Zofran 4 mg Route: PO; em 09:34 Follow up: Response: No adverse reaction; Marked relief of symptoms; Nausea is decreasedem 08:29 Drug: TORadol 60 mg Route: IM; Site: right gluteus; em 09:33 Follow up: Response: No adverse reaction; Marked relief of symptoms; Pain is decreased em 08:48 Drug: NS 0.9% 1000 ml Route: IV; Rate: 1 bolus; Site: left antecubital; em 09:32 Follow up: IV Status: Completed infusion; IV Intake: 1000ml em 09:30 Drug: Rocephin 1 grams Route: IV; Rate: per protocol; Site: left antecubital; em 09:45 Follow up: Response: No adverse reaction; IV Status: Completed infusion; IV Intake: 10mlem 10:07 Not Given (Duplicate Order): morphine 4 mg IVP once; RASS on ADMIN: Combtv4, Very brittany Agttd3, Agttd2, Rstlss1, AlertClm0, Drwsy-1, Lt Sdtn-2, Mod Sdtn-3, Dp Sdtn-4, UnArsble-5 10:10 Drug: Zofran 4 mg Route: IVP; Site: left antecubital; em 10:29 Follow up: Response: No adverse reaction em 10:12 Drug: fentaNYL (PF) 25 mcg Route: IVP; Site: left antecubital; em 10:30 Follow up: Response: No adverse reaction; Marked relief of symptoms; Pain is decreased em 10:27 Drug: Zithromax 500 mg Route: PO; em 10:30 Follow up: Response: Medication administered at discharge. em Intake: 09:32 IV: 1000ml; Total: 1000ml. em 09:45 IV: 10ml; Total: 1010ml. em Outcome: 09:53 Discharge ordered by . [facility] 10:31 Discharged to home via wheelchair, with family. em 10:31 Condition: good 10:31 Discharge instructions given to patient, family, Instructed on discharge instructions, follow up and referral plans. medication usage, Demonstrated understanding of instructions, follow-up care, medications, Prescriptions given X 4. 10:32 Patient left the ED. em Signatures: Keysha Pedersen, RN RN David Bhatt MD MD cha Munoz, Edgar, RN RN Laurie Pena RN RN ss Garcia, Rubi rg4 Mallorie North kj1
--- NOTE | 2019-08-11 09:54 | EDPHYS ---
Physician Documentation [facility] Name: Chanell Sanders Age: 54 yrs Sex: Female : 1965 Arrival Date: 08/11/2019 Time: 07:54 Bed 5 Private MD: Huong Cabrera ED Physician David Yadav HPI: 08/11 08:24 This 54 yrs old Female presents to ER via Ambulatory with complaints of Flu brittany Symptoms. 08:24 The patient complains of pain to the top of head, forehead, left frontal area, left brittany temporal area, right frontal area and right side of forehead. The patient describes the headache as aching. Historical: - Allergies: 08:03 No Known Allergies; ss - PMHx: 08:03 RA; degenerative bone disease; ss - PSHx: 08:03 Breast biopsy; colon resection; Knee - Bilateral; Hysterectomy; Hernia repair; ss Appendectomy; Cholecystectomy; back; - Immunization history:: Adult Immunizations up to date. - Coronavirus screen:: The patient has NOT traveled to [place] in the past 14 days. Proceed with normal triage process as indicated. - Social history:: Smoking status: Patient denies any tobacco usage or history of. - Family history:: not pertinent. - Ebola Screening: : Patient denies exposure to infectious person Patient denies travel to an Ebola-affected area in the 21 days before illness onset. ROS: 08:25 Constitutional: Negative for fever, chills, and weight loss, Eyes: Negative for injury, brittany pain, redness, and discharge, ENT: Negative for injury, pain, and discharge, Neck: Negative for injury, pain, and swelling, Cardiovascular: Negative for chest pain, palpitations, and edema, Abdomen/GI: Negative for abdominal pain, nausea, vomiting, diarrhea, and constipation, Back: Negative for injury and pain, : Negative for injury, bleeding, discharge, and swelling, MS/Extremity: Negative for injury and deformity, Skin: Negative for injury, rash, and discoloration, Psych: Negative for depression, anxiety, suicide ideation, homicidal ideation, and hallucinations, Allergy/Immunology: Negative for hives, rash, and allergies, Endocrine: Negative for neck swelling, polydipsia, polyuria, polyphagia, and marked weight changes, Hematologic/Lymphatic: Negative for swollen nodes, abnormal bleeding, and unusual bruising. 08:25 Respiratory: Positive for cough. 08:25 Respiratory: Positive for 08:25 Neuro: Positive for headache. Exam: 08:25 Constitutional: This is a well developed, well nourished patient who is awake, alert, brittany and in no acute distress. Head/Face: Normocephalic, atraumatic. Eyes: Pupils equal round and reactive to light, extra-ocular motions intact. Lids and lashes normal. Conjunctiva and sclera are non-icteric and not injected. Cornea within normal limits. Periorbital areas with no swelling, redness, or edema. ENT: Nares patent. No nasal discharge, no septal abnormalities noted. Tympanic membranes are normal and external auditory canals are clear. Oropharynx with no redness, swelling, or masses, exudates, or evidence of obstruction, uvula midline. Mucous membranes moist. Neck: Trachea midline, no thyromegaly or masses palpated, and no cervical lymphadenopathy. Supple, full range of motion without nuchal rigidity, or vertebral point tenderness. No Meningismus. Chest/axilla: Normal chest wall appearance and motion. Nontender with no deformity. No lesions are appreciated. Respiratory: Lungs have equal breath sounds bilaterally, clear to auscultation and percussion. No rales, rhonchi or wheezes noted. No increased work of breathing, no retractions or nasal flaring. Abdomen/GI: Soft, non-tender, with normal bowel sounds. No distension or tympany. No guarding or rebound. No evidence of tenderness throughout. Back: No spinal tenderness. No costovertebral tenderness. Full range of motion. Skin: Warm, dry with normal turgor. Normal color with no rashes, no lesions, and no evidence of cellulitis. MS/ Extremity: Pulses equal, no cyanosis. Neurovascular intact. Full, normal range of motion. Neuro: Awake and alert, GCS 15, oriented to person, place, time, and situation. Cranial nerves II-XII grossly intact. Motor strength 5/5 in all extremities. Sensory grossly intact. Cerebellar exam normal. Normal gait. Psych: Awake, alert, with orientation to person, place and time. Behavior, mood, and affect are within normal limits. 08:25 Cardiovascular: Rate: tachycardic, Rhythm: regular, Heart sounds: normal, Edema: is not appreciated, JVD: is not appreciated. Vital Signs: 08:03 BP 100 / 67; Pulse 108; Resp 17; Temp 98.8(O); Pulse Ox 96% on R/A; Weight 70.31 kg; ss Height 5 ft. 8 in. (172.72 cm); Pain 7/10; 09:34 BP 123 / 74; Pulse 92; Resp 20; Pulse Ox 95% on R/A; Pain 5/10; em 10:05 BP 97 / 67; Pulse 83; Resp 18; Pulse Ox 95% on R/A; Pain 5/10; em 10:24 BP 104 / 74; Pulse 84; Resp 18; Pulse Ox 99% on R/A; Pain 3/10; em 08:03 Body Mass Index 23.57 (70.31 kg, 172.72 cm) ss MDM: 07:55 [facility] 08:29 Data reviewed: vital signs, nurses notes, lab test result(s). [facility] 08/11 08:08 Order name: Flu 08/11 08:08 Order name: Strep 08/11 08:32 Order name: Basic Metabolic Panel [facility] 08/11 08:32 Order name: CBC with Diff [facility] 08/11 08:32 Order name: LFT's [facility] 08/11 08:32 Order name: Magnesium [facility] 08/11 08:32 Order name: NT PRO-BNP [facility] 08/11 08:32 Order name: PT-INR [facility] 08/11 08:32 Order name: Troponin (emerg Dept Use Only) [facility] 08/11 08:32 Order name: Blood Culture Adult (2) [facility] 08/11 08:49 Order name: Influenza Screen (A ; Complete Time: 09:46 EDMS 08/11 08:50 Order name: Group A Streptococcus Rapid Sc; Complete Time: 09:46 EDMS 08/11 09:07 Order name: CBC with Automated Diff; Complete Time: 09:46 EDMS 08/11 09:10 Order name: Protime (+INR); Complete Time: 09:46 EDMS 08/11 08:32 Order name: XRAY Chest (1 view) [facility] 08/11 08:32 Order name: EKG; Complete Time: 08:33 [facility] 08/11 08:32 Order name: Cardiac monitoring; Complete Time: 09:28 [facility] 08/11 09:27 Order name: Basic Metabolic Panel; Complete Time: 09:46 EDMS 08/11 09:27 Order name: Liver (Hepatic) Function; Complete Time: 09:46 EDMS 08/11 09:27 Order name: Troponin (Emerg Dept Use Only); Complete Time: 09:46 EDMS 08/11 09:27 Order name: NT PRO-BNP; Complete Time: 09:46 EDMS 08/11 09:27 Order name: Magnesium; Complete Time: 09:46 EDMS 08/11 08:32 Order name: EKG - Nurse/Tech; Complete Time: 09:28 [facility] 08/11 08:32 Order name: IV Saline Lock; Complete Time: 08:59 [facility] 08/11 08:32 Order name: Labs collected and sent; Complete Time: 08:59 [facility] 08/11 08:32 Order name: O2 Per Protocol; Complete Time: 08:59 [facility] 08/11 08:32 Order name: O2 Sat Monitoring; Complete Time: 08:58 [facility] Administered Medications: 08:27 Drug: Zofran 4 mg Route: PO; em 09:34 Follow up: Response: No adverse reaction; Marked relief of symptoms; Nausea is decreasedem 08:29 Drug: TORadol 60 mg Route: IM; Site: right gluteus; em 09:33 Follow up: Response: No adverse reaction; Marked relief of symptoms; Pain is decreased em 08:48 Drug: NS 0.9% 1000 ml Route: IV; Rate: 1 bolus; Site: left antecubital; em 09:32 Follow up: IV Status: Completed infusion; IV Intake: 1000ml em 09:30 Drug: Rocephin 1 grams Route: IV; Rate: per protocol; Site: left antecubital; em 09:45 Follow up: Response: No adverse reaction; IV Status: Completed infusion; IV Intake: 10mlem 10:07 Not Given (Duplicate Order): morphine 4 mg IVP once; RASS on ADMIN: Combtv4, Very brittany Agttd3, Agttd2, Rstlss1, AlertClm0, Drwsy-1, Lt Sdtn-2, Mod Sdtn-3, Dp Sdtn-4, UnArsble-5 10:10 Drug: Zofran 4 mg Route: IVP; Site: left antecubital; em 10:29 Follow up: Response: No adverse reaction em 10:12 Drug: fentaNYL (PF) 25 mcg Route: IVP; Site: left antecubital; em 10:30 Follow up: Response: No adverse reaction; Marked relief of symptoms; Pain is decreased em 10:27 Drug: Zithromax 500 mg Route: PO; em 10:30 Follow up: Response: Medication administered at discharge. em Disposition: 08/11/19 09:53 Discharged to Home. Impression: Influenza due to identified novel influenza A virus, Fever, unspecified, Weakness, Pneumonia due to other specified bacteria. - Condition is Stable. - Discharge Instructions: Fever, Adult, Influenza, Adult, Community-Acquired Pneumonia, Adult, Weakness, Fatigue, Weakness, Mwus-hr-Dglw, Fever, Adult, Ozmu-xd-Mwkc. - Prescriptions for Zofran 4 mg Oral Tablet - take 1 tablet by ORAL route every 12 hours As needed; 20 tablet. Tamiflu 75 mg Oral Capsule - take 1 tablet by ORAL route every 12 hours for 5 days; 10 tablet. Guaifenesin AC 10- 100 mg/5 mL Oral Liquid - take 10 milliliter by ORAL route every 4 hours As needed; 240 milliliter. Zithromax 500 mg Oral Tablet - take 1 tablet by ORAL route once daily for 4 days; 4 tablet. - Medication Reconciliation Form, Thank You Letter, Antibiotic Education, Prescription Opioid Use, Work release form form. - Follow up: Huong Cabrera MD; When: 2 - 3 days; Reason: Recheck today's complaints, Continuance of care, Re-evaluation by your physician. - Problem is new. - Symptoms have improved. Signatures: Dispatcher [employer] [facility] David Yadav MD MD cha Munoz, Edgar, RN RN Laurie Stringer RN RN ss Corrections: (The following items were deleted from the chart) 10:32 09:53 08/11/2019 09:53 Discharged to Home. Impression: Influenza due to identified em novel influenza A virus; Fever, unspecified; Weakness; Pneumonia due to other specified bacteria. Condition is Stable. Forms are Medication Reconciliation Form, Thank You Letter, Antibiotic Education, Prescription Opioid Use. Follow up: Huong Cabrera; When: 2 - 3 days; Reason: Recheck today's complaints, Continuance of care, Re-evaluation by your physician. Problem is new. Symptoms have improved. brittany
[2019-08-11] MEDS ORDERED: AZITHROMYCIN 250 MG TAB ONE (10:07)
[2019-08-11] MEDS ORDERED: ONDANSETRON 4 MG/2 ML VIAL ONE (10:08)
[2019-08-11] MEDS ORDERED: MORPHINE 4 MG/ML SYR ONE (10:08)
[2019-08-11] MEDS ORDERED: FENTANYL CITR 100 MCG/2 ML ONE (10:10)
--- NOTE | 2019-08-11 10:25 | RAD REPORT ---
EXAM DESCRIPTION: RAD - Chest Single View - 08/11/2019 9:51 am CLINICAL HISTORY: COUGH, flu-like symptoms COMPARISON: Chest Single View dated 05/29/2019; Chest Pa And Lat (2 Views) dated 01/22/2019 TECHNIQUE: AP portable chest image was obtained 08/11/2019 9:51 am . FINDINGS: Lungs are clear. AP technique and body habitus accentuate lateral left base markings. True finding is not suspected. Granuloma seen right lung base. Heart and vasculature are normal. No measu rable pleural effusion and no pneumothorax. No acute bony abnormality seen. No acute aortic findings suspected. IMPRESSION: No acute cardiopulmonary process. No significant change from comparison.
[2019-08-11 11:03] VITALS: BP 104/74; O2SAT 99
--- NOTE | 2019-08-12 11:25 | EKG ---
Test Date: 2019-08-11 Test Time: 09:06:17 Coverage Analyst: DESTINY MEASUREMENT RESULTS: Intervals: Rate: 92 WA: 180 QRSD: 78 QT: 380 QTc: 469 Tippo: P: 64 WA: 180 QRS: 75 T: 65 INTERPRETIVE STATEMENTS: Normal sinus rhythm Normal ECG No previous ECG available for comparison Electronically Signed On 08-12-19 11:24:35 FLAG SIGNALER by Misbah Sheikh
== END 2019-08-11 10:32 | disposition home or self-care (01) ==
LOC: ER 07:52
DX: J10.1 Influenza due to other identified influenza virus with other respiratory manifestations (principal); J15.8 Pneumonia due to other specified bacteria; R53.1 Weakness
CPT/HCPCS: 96361; 93005; 87040 ×2; 87070; 85025; 80048; 36415; 83735; 85610; 80076; 87081; 84484; 83880; 87804 ×2; 71045; 96375; 96372; 96374; 99284; J3010; J0696; J7030; J2405

== ENCOUNTER 2019-08-26 08:22 | Day surgery (SDC) | payer OTHER ==
--- OUTSIDE RECORDS SUMMARY | 2019-08-26 08:25 | XMS REPORT ---
[...] End Date Status Dosage System Date Simvastatin [facility] 99839641972 40 MG Orally Active 1 tablet in Once a day the evening Results No Known Results Summary Purpose eClinicalWorks Submission
--- OUTSIDE RECORDS SUMMARY | 2019-08-26 08:25 | XMS REPORT ---
[...] Status Dosage System Date Date Zoloft ND 74394848175 25 MG Orally Active 1 tablet Once a day Vraylar [facility] 68018552804 3 MG Orally Active 1 capsule Once a day Simvastatin ND 58508505260 40 MG Orally Active 1 tablet in Once a day the evening PredniSONE ND 36043088066 10 MG Orally Active 1 tablet Once a day Remicade ND 36998462176 100 MG Active as directed Intravenous Amitriptyline ND 10558986643 10 MG Orally Active 1 tablet HCl Once a day Methotrexate ND 84653377203 2.5 MG Orally Active as directed (Anti-Rheumatic) Mobic ND 13466771466 15 MG Orally Active 1 tablet Once a day Results Name Result Date Reference Range Unit Abnormality Flag TSH W/REFLEX TO FT4 ----TSH W/REFLEX TO FT4 0.65 70877293 mIU/L N LIPID PANEL WITH REFLEX TO DIRECT LDL ----NON HDL CHOLESTEROL 196 61376083 <130 mg/dL (calc) H ----LDL-CHOLESTEROL 148 92375192 mg/dL (calc) H ----CHOL/HDLC RATIO 5.6 65256850 <5.0 (calc) H ----HDL CHOLESTEROL 43 63565491 >50 mg/dL L ----TRIGLYCERIDES 309 68255526 <150 mg/dL H ----CHOLESTEROL, TOTAL 239 00709274 <200 mg/dL H Summary Purpose eClinicalWorks Submission
--- OUTSIDE RECORDS SUMMARY | 2019-08-26 08:25 | XMS REPORT ---
:1965 [facility] Address [address] [place] [address] Care Team Providers Name Role Phone SHANESIERRA [...] ID 2016-12-02 2016-12-02 Inpatient E [facility] [id number] 16:04:00 16:04:00 2016-11-16 2016-11-16 Emergency E [facility] [id number] 01:31:00 01:31:00 2016-10-06 2016-10-10 Inpatient 1 CHRISTO MCCORMACK [facility] [id number] 01:45:00 14:23:00 CASSY 2016-09-13 2016-09-13 Outpatient 3 CHRISTO CHEEMA [id number] 06:12:00 08:12:00 IVETT 2016-08-09 2016-08-09 Outpatient 3 CHRISTO CHEEMA [id number] 05:55:00 05:55:00 IVETT Results Test Description Test Time Test Comments Text Results Atomic Results Result Comments HEPATITIS C ANTIBODY 2018-02-13 14:43:00 Test Item Value Reference Range Comments HCV (test code=HCV) NEGATIVE NEGATIVE Hepatitis C Antibody test is for screening purposes only. All reactives will be confirmed by additional testing. QUANTIFERON TB [id number] 11:48:00 Test Item Value Reference Range Comments TBQF (test code=TBQF) NEGATIVE NEGATIVE TESTING [place] [address] (RESULTS AVAILABLE UNDER SEPARATE COVER) HEPATITIS B SURFACE [id number] 13:48:00 Test Item Value Reference Range Comments [...] IMMUNE TO HBV INFECTION. HEPATITIS B SURF [id number] 13:48:00 Test Item Value Reference Range Comments HEPBSAG (test code=HEPBSAG) NEGATIVE NEGATIVE Hepatitis B Surface Antigen is for screening purpose only. All reactives will be sent to reference lab for confirmation. HEP B CORE AB [id number] 13:48:00 Test Item Value Reference Range Comments HEP B CORE AB, TOTAL (test code=HBCABTOT) NEGATIVE NEGATIVE [id number] 13:47:00 Test Item Value Reference Range Comments SODIUM (test code=NA) 137 MMOL/L 137-145 K+ (test code=KSERUM) 5.1 MMOL/L 3.5-5.1 PLEASE NOTE NEW REFERENCE RANGE(S) IN EFFECT EFFECTIVE 01/28/2010 - NEW ANALYZER ([employer] 5600) CHLORIDE (test code=CL) 101 MMOL/L 98-107 CO2 (test code=CO2) 28 MMOL/L 22-30 BUN (test code=BUN) 14 MG/DL 7-17 CREA (test code=CREA) 0.6 MG/DL 0.7-1.2 GLUCOSE (test 94 MG/DL 70-99 Fasting glucose normal code=GLUCOSE) <100 MG/DL- [employer] recommendation CALCIUM (test 9.7 MG/DL 8.4-10.2 code=CABLOOD) TOTPROT (test 8.5 G/DL 6.3-8.2 code=TOTPROT) ALBUMIN (test 4.9 G/DL 3.5-5.0 code=ALBSERUM) BILITOT (test 0.3 MG/DL 0.2-1.3 code=BILITOT) AST (test code=AST) 36 U/L 15-46 PHOSALK (test 93 U/L 38-126 code=PHOSALK) ALT (test code=ALT) 41 U/L 13-69 GFR (test code=GFR) 112 mL/min/1.73m2 A GFR of >90 mL/min/1.73m2 is considered normal. SEDIMENTATION [id number] 12:33:00 Test Item Value Reference Range Comments SED RATE (test code=ESR) 29 MM/HR 0-20 [id number] 12:04:00 Test Item Value Reference Range Comments [...] (test code=NEUT) 5.9 K/UL 1.2-7.2 XR ABDOMEN [id number] 08:05:16Information: Small bowel obstruction and nasogastric tube.Abdomen [...] the nasogastric tube. See above.XR ABDOMEN KUB [id number] 05: 30:54History: Nasogastric tube placement, small bowel [...] surgical nursing station byDr. Gregory at 2221 hours.85519& amp;PELVIS W/[id number] 16:25:07CT ABDOMEN AND CT PELVIS WITH CONTRAST: [...] of previous graft right colectomy.XR ABDOMEN KUB [id number] 11:37:59History: Nasogastric tube placement, small bowel obstructionABDOMEN KUB:COMPARISON: Abdominal film done earlier the same day.A nasogastric tube is now seen with the tip in the area of the fundus ofthe stomach.Persistent small bowel distention is observed. Some air is seen inundistended colon.Evidence of previous lumbar surgery is again noted.IMPRESSION:Nasogastric tube coursing into the stomach area.Persistent small boweldistention.XR ABDOMEN [id number] 08:32:14HISTORY: Small bowel obstruction, nasogastric tubeABDOMEN COMPLETE [...] Pederson at 0836 hours on 12/03/2016.XR ABDOMEN [id number] 10 :09:50History:: Abdominal pain and constipationAbdomen 2 [...] post lumbar spine fusion.XR CHEST SGL 1V, [id number] 07:24:43XR CHEST SGL 1V, FRONTALDIAGNOSIS: Chest painThe heart and mediastinum are stable. A left lower lobeopacity hasdeveloped since 06/20/2014, pneumonia would be a prime consideration.The remainder the chest is normal.IMPRESSION: Left lower lobe opacity, most likely pneumonia developingsince 06/20/2014.CT ABDOMEN/ PELVIS [id number] 00:58:[address] [id number] IMAGING REPORTPatient Name: IGOR LOW SDate of Service: 14-45-5133Yhn: 51 Sex: F Order #: [id number] Room: ERSDOB : 1965 X-Ray Number: [id number] Record Number: [id number] Hospital Number: [id number] Physician: KANWAL PENNOrdering Physician : ZULMA DELUCA [...] authenticated by TATY SHAIKH 2016-10-17 00:55:36ABDOMEN 2 [id number] 23:48:00BAPTRichard [place] [id number] IMAGING REPORTPatient Name: IGOR LOW APOLLOate of Service: 10-16Age: 51 Sex: F Order #: [id number] Room: ERSDOB: 1965 X-Ray Number: [id number] Record Number: [id number] Hospital Number: [id number] Physician: KANWAL PENNOrdering Physician: Adria DELUCA 2 [...] authenticated by TATY SHAIKH 2016-10-16 23:46:21ABDOMEN 2 [id number] 12:35:00[place] [id number] IMAGING REPORTPatient Name: IGOR LOW APOLLOate of Service: 96-10-4206Tnv: 51 Sex: F Order #: [id number] Room: [facility] 2NEDOB: 1965 X-Ray Number: [id number] Record Number: [id number] Hospital Number: [id number] Physician: Lili MCCORMACK Physician: No SILVERMAN 2 [...] authenticated by MAURICE NUÑEZ 2016-10-08 12:32:33CT ABDOMEN/PELVIS [id number] 22:59:[address] [id number] IMAGING REPORTPatient Name : IGOR LOW SDate of Service: 48-43-8471Ovj: 51 Sex: F Order #: [id number] Room: [facility]: 1965 X-Ray Number: [id number] Record Number: [id number] Hospital Number: [id number] Physician: SONI HAYES - Ordering Physician: James [...] MICHAUD 2016-10-05 22:57:24Z-ORG SCREEN MAMMO TAMEKA AND [id number] 13:44:[address] [id number] IMAGING REPORTPatient Name : IGOR LOW SDate of Service: 79-21-8776Hey: 51 Sex: F Order #: 100 Room: OPODOB: 1965 X-Ray Number: [id number] Record Number: [id number] Hospital Number: [id number] Physician: Anand HOPPER Physician: LILO HOPPER DIGITAL [...] screeningmammography in one yearBI-RADS CATEGORY 2: Benign findings.SECRETARY: RT Roxanna ALFARO)PLEASE NOTE:1. In up to 10% of patients, cancers are not visible on mammography.2. If a suspicious lump is palpated, biopsy should not be deferredbecause of a negative mammogram.MAMMOGRAPHY AT [facility] IS ACCREDITED BY THE [employer] OFRADIOLOGYTHANK YOU FOR YOUR OUTPATIENT REFERRALjhbElectronically Signed By: Bert Malagon M.D., 09/28/2016 1:42 PMLegally authenticated by AURELIO SOSA 2016-09-28 13:42:08CT ABDOMEN/PELVIS [id number] 17:12:[address] [id number] IMAGING REPORTPatient Name: IGOR LOWate of Service: 48-56-8705Ujg: 51 Sex: F Order #: [id number] [facility] 1965 [facility]Ray Number: [id number] Record Number: [id number] Hospital Number: [id number] Physician: Mekhi WALL Physician: GRIFFIN PADILLA abdomen and pelvis with [...] PMLegally authenticated by JOSE MIGUEL KEARNEY 2016-09-25 17:10:[id number] 13:16:00QRS Interval: 103msQT Interval: 390msQTC Interval : 442msP Haines: 63degQRS Haines: 53degT Wave Haines: 49degP-R Interval: 198msecRR Interval: 779msecHeart Rate: 77bpmI 40 Haines: 60degT 40 Haines: 45degST Haines: 47degEKG Severity: - NORMAL ECG -REPORT:Sinus rhythmHEPATITIS C ANTIBODY [id number] 08:54:00 Test Item Value Reference Range Comments [...] and confirmation results will follow. CDIFF AMPLIFIED [id number] 12:58:00 Test Item Value Reference Range Comments C DIFFICILE TESTING ON NEGATIVE NEGATIVE PSEUDOMEMBRANOUS COLITIS, BY STOOL (test code=CDIFF) DEFINITION, IS DIARRHEA, IN PATIENTS OLDER THAN 6 MONTHS OF AGE, CAUSED BY LONG-TERM ANTIBIOTIC EXPOSURE. NON-DIARRHEAL STOOLS WILL NOT BE TESTED. C.DIFF LOT # (test [id number] code=CDIFFLOT) C. DIFF EXPIRATION DATE 07-08-2017 (test code=CDIFFEXP) CT ABDOMEN/PELVIS [id number] 15:02:[address] [id number] IMAGING REPORTPatient Name : IGOR LOW SDate of Service: 82-54-7435Bkd: 51 Sex: F Order #: [id number] [facility] 1965 X-Ray Number: [id number] Record Number: [id number] Hospital Number: [id number] Physician: Paramjit DESHPANDEing Physician: LIZA DESHPANDE abdomen [...] 2:59 PMLegally authenticated by REBECCA PALACIOS 08-16 14:59:[id number] 14:29:00 Test Item Value Reference Range Comments [...] 21 /LPF BACTERIA (test code=BACTERIA) NEGATIVE NONE [id number] 12:40:00 Test Item Value Reference Range Comments SODIUM (test code=NA) 140 MMOL/L 137-145 K+ (test code=KSERUM) 3.9 MMOL/L 3.5-5.1 PLEASE NOTE NEW REFERENCE RANGE(S) IN EFFECT EFFECTIVE 01/28/2010 - NEW ANALYZER ([employer] 5600) CHLORIDE (test code=CL) 103 MMOL/L 98-107 CO2 (test code=CO2) 21 MMOL/L 22-30 BUN (test code=BUN) 12 MG/DL 7-17 CREA (test code=CREA) 0.7 MG/DL 0.7-1.2 GLUCOSE (test 77 MG/DL 70-99 Fasting glucose normal code=GLUCOSE) <100 MG/DL- [employer] recommendation CALCIUM (test 8.9 MG/DL 8.4-10.2 code=CABLOOD) TOTPROT (test 7.7 G/DL 6.3-8.2 code=TOTPROT) ALBUMIN (test 4.5 G/DL 3.5-5.0 code=ALBSERUM) BILITOT (test 0.5 MG/DL 0.2-1.3 code=BILITOT) AST (test code=AST) 89 U/L 15-46 PHOSALK (test 96 U/L 38-126 code=PHOSALK) ALT (test code=ALT) 58 U/L 13-69 GFR (test code=GFR) 94 mL/min/1.73m2 A GFR of >90 mL/min/1.73m2 is considered normal. [id number] 12:40:00 Test Item Value Reference Range Comments LIPASE (test code=LIPA) 57 U/L 23-300 [id number] 12:16:00 Test Item Value Reference Range Comments [...]
--- OUTSIDE RECORDS SUMMARY | 2019-08-26 08:26 | XMS REPORT ---
[...] Medications Results No Known Results Summary Purpose [employer]Lumafit Submission
--- OUTSIDE RECORDS SUMMARY | 2019-08-26 08:26 | XMS REPORT | Summary of Care ---
:1965 Author Organization [facility] [place] [address] Care Team Providers Name Role Phone Huong Cabrera DO Primary Care Provider Reason for Referral Radiology Services (Routine) Status Reason Specialty Diagnoses / Referred By Contact Referred To Contact Procedures Pending Radiology Diagnoses Pseudoarthrosis of lumbar spine Spondylolisthesis at L3-L4 level Lumbar post-laminectomy syndrome Mango Stauffer, Radiology Procedures FL MYELOGRAM LUMBAR MD Klaus [address] [place] [address] Floor [address] [place] [address] Radiology Services (Routine) Status Reason Specialty Diagnoses / Referred By Contact Referred To Contact Procedures Pending Radiology Diagnoses Pseudoarthrosis of lumbar spine Spondylolisthesis at L3-L4 level Lumbar post-laminectomy syndrome Mango Stauffer, Radiology Procedures CT LUMBAR SPINE W CONTRAST MD Klaus [address] [place] [address] Floor [address] [place] [address] Radiology Services (Routine) Status Reason Specialty Diagnoses / Referred By Contact Referred To Contact Procedures Pending Radiology Diagnoses Pseudoarthrosis of lumbar spine Spondylolisthesis at L3-L4 level Lumbar post-laminectomy syndrome Mango Stauffer, Radiology Procedures XR LUMBAR SPINE AP LATERAL FLEXION AND EXTENSION MD Klaus [address] [place] [address] Floor [address] [place] [address] Reason for Visit Reason Comments Back Pain lower back pain with history of surgery, disc disease of the bone Numbness of lower back; right sided Initial Consultation Encounter Details Date Type Department Care Team Description 08/06/2019 Office Visit [facility] Mango Stauffer Back Pain (lower back Medicine MD Klaus pain with history of Neurosurgery [address] [facility] surgery, disc disease [address] of the bone ); 9th Floor, [address] [place] [address] Numbness (of lower [place], [place] [phone] back; right sided ); [id number] Initial Consultation [phone] Allergies No Known Allergiesdocumented as of this encounter (statuses as of 08/16/2019) Medications Medication Sig Dispensed Refills Start Date End Date Status simvastatin (ZOCOR) 40 Take 40 mg by 0 Active MG tablet mouth. infliximab, REMICADE, Inject into the 0 Active (REMICADE) 100 MG vein. injection METHOTREXATE OR Take by mouth. 0 Active FOLIC ACID OR Take by mouth. 0 Active tramadol (ULTRAM) 50 MG Take 50 mg by 0 Active tablet mouth every 6 hours as needed for Pain. MELOXICAM OR Take by mouth. 0 Active documented as of this encounter (statuses as of 08/16/2019) Active Problems Not on filedocumented as of this encounter (statuses as of 08/16/2019) Social History Tobacco Use Types Packs/Day Years Used Date Current Every Day Smoker Cigarettes 1 20 Smokeless Tobacco: Never Used Alcohol Use Drinks/Week oz/Week Comments Not Currently Alcohol Habits Answer Date Recorded How often do you have a drink containing alcohol? Never 08/06/2019 How many drinks containing alcohol do you have on a typical Not asked day when you are drinking? How often do you have six or more drinks on one occasion? Not asked Sex Assigned at Date Recorded Not on file Job Start Date Occupation Industry Not on file Not on file Not on file Travel History Travel Start Travel End No recent travel history available. documented as of this encounter Last Filed Vital Signs Vital Sign Reading Time Taken Comments Blood Pressure 126/87 08/06/2019 8:10 AM DIRECTOR OF PUBLIC RELATIONS Pulse 84 08/06/2019 8:10 AM [employer]OR OF PUBLIC RELATIONS Temperature 36.6 C (97.8 F) 08/06/2019 8:10 AM [employer]OR OF PUBLIC [employer]ATIONS Respiratory Rate 18 08/06/2019 8:10 AM DIRECTOR OF PUBLIC RELATIONS Oxygen Saturation 98% 08/06/2019 8:10 AM DIRECTOR OF PUBLIC [employer]ATIONS Inhaled Oxygen Concentration - - Weight 70.8 kg (156 lb) 08/06/2019 8:10 AM DIRECTOR OF PUBLIC RELATIONS Height 172.7 cm (5' 8") 08/06/2019 8:10 AM DIRECTOR OF PUBLIC RELATIONS Body Mass Index 23.72 08/06/2019 8:10 AM DIRECTOR OF PUBLIC RELATIONS documented in this encounter Patient Instructions Patient InstructionsKentonCheli linda, EVENT CREW TECHNICIAN - 08/06/2019 8:[address] myelogram of the lumbar spine, scoliosis x-rays, and lumbar flexion and extension x-rays. You will need to stop smoking prior to surgery. We will have you see Dr. Ceballos after completion of all imaging studies. Your Body mass index is 23.72 kg/m. Body mass index (BMI) can help you see if your weight is raising your risk for health problems. It uses a formula to compare how much you weigh with how tall you are. A BMI between 18.5 and 24.9 is considered healthy. A BMI between 25 and 29.9 is considered overweight. A BMI of 30 or higher is considered obese. If your BMI is in the normal range, it means that you have a lower risk for weight-related health problems. If your BMI is in the overweight or obese range , you may be at increased risk for weight-related health problems, such as high blood pressure, heart disease, stroke, arthritis or joint pain, anddiabetes. BMI is just one measure of your risk for weight-related health problems. You may be at higher risk for health problems if you are not active, you eat an unhealthy diet, or you drink too much alcohol oruse tobacco products. Follow-up care is a oswald part of your treatment and safety. Be sure to make and go to all appointments, and call your doctor if you are having problems. It's also a good idea to know your test results and keep a list of the medicines you take. How can you care for yourself at home? Practice healthy eating habits. This includes eating plenty of fruits, vegetables, whole grains, lean protein, and low-fat dairy. Get at least 30 minutes of exercise 5 days a week or more. Brisk walking is a good choice. You also may want to do other activities, such as running, swimming, cycling, or playing tennis or team sports. Do not smoke. Smoking can increase your risk for health problems. If you need help quitting, talkto your doctor about stop-smoking programs and medicines. These can increase your chances of quitting for good. Limit alcohol Where can you learn more? Go to [email or web address] Go to the Search tab with the magnifying glass on the right side of [facility] home page. Enter S176 in the search box to learn more about "Body Mass Index: Care Instructions." CTOR OF PUBLIC RELATIONS documented in this encounter Progress Notes Mango Stauffer MD - 08/06/2019 8:00 AM CST Referring Physician: Huong Cabrera DO [address] [place] [address] CHIEF COMPLAINT: Chief Complaint Patient presents with Back Pain lower back pain with history of surgery, disc disease of the bone Numbness of lower back; right sided Initial Consultation PRESENT ILLNESS: Ms. Sanders is a 54 y.o. right handed female smoker with history of RA on Remicade and methotrexate who presents to the [facility] with back pain. She has a history ofback pain dating back to 2000. He had 3 prior lumbar surgeries performed by Dr. Quiroz and Dr. Jones. The patient describes the pain as sharp and catching. It is 5-8 /10 and worsening. It is worse with bending and standing and decreases with laying down. Pain is mostly across her lower back and extends to her anterolateral lower extremities. This is NOT associated with numbness or tingling. Shehas some weakness. Patient tried conservative therapy with no symptom relief. Pain does affect ADL's. The patient denies bowel or bladder changes. Patient was referred to our clinic for further evaluation. Pain Management: yes If yes, then with whom: Dr. Mai Anti-inflammatories: yes, meloxicam Oral Steroids: yes, prednisone Opioids: yes, tramadol Muscle Relaxers: yes Gabapentin: yes and/or Lyrica: no Epidural Steroid Injections: yes Trigger Point Injections: yes Physical Therapy: yes Chiropractic Services: no Acupuncture Services: no Patient is taking blood thinners: no Pacemaker/ Defibrillator: no CURRENT MEDICATIONS: Current Outpatient Medications Medication Sig Dispense Refill FOLIC ACID OR Take by mouth. infliximab, REMICADE, (REMICADE) 100 MG injection Inject into the vein. MELOXICAM OR Take by mouth. METHOTREXATE OR Take by mouth. simvastatin (ZOCOR) 40 MG tablet Take 40 mg by mouth. tramadol (ULTRAM) 50 MG tablet Take 50 mg by mouth every 6 hours as needed for Pain. No current facility-administered medications for this visit. ALLERGIES: No Known Allergies PAST MEDICAL HISTORY: Past Medical History: Diagnosis Date Arthritis Autoimmune disorder (HCCode) High cholesterol Rheumatoid arthritis (HCCode) PAST SURGICAL HISTORY: Past Surgical History: Procedure Laterality Date HX ABDOMEN SURGERY X 10 HX BREAST SURGERY HX CHOLECYSTECTOMY HX KNEE SURGERY HX SPINE SURGERY X 3 FAMILY HISTORY: Family History Problem Relation Name Age of Onset Diabetes Mother No Known Problems Father SOCIAL HISTORY: Social History Tobacco Use Smoking status: Current Every Day Smoker Packs/day: 1.00 Years: 20.00 Pack years: 20.00 Types: Cigarettes Smokeless tobacco: Never Used Substance Use Topics Alcohol use: Not Currently Frequency: Never REVIEW OF SYSTEMS: Review of Systems Constitution: Negative for chills, diaphoresis, fever, malaise/fatigue, night sweats and weight loss. HENT: Negative for congestion, ear pain, hearing loss, hoarse voice, nosebleeds , sore throat and tinnitus. Eyes: Negative for blurred vision, double vision, redness and visual halos. Cardiovascular: Negative for chest pain, leg swelling and palpitations. Respiratory: Negative for cough, shortness of breath and wheezing. Endocrine: Negative for cold intolerance, heat intolerance, polydipsia, polyphagia and polyuria. Hematologic/Lymphatic: Negative for adenopathy and bleeding problem. Does not bruise/bleed easily. Skin: Negative for itching and rash. Musculoskeletal: Positive for back pain and joint pain. Negative for falls, joint swelling, muscle weakness and neck pain. Gastrointestinal: Negative for abdominal pain, bowel incontinence, constipation , diarrhea, dysphagia, heartburn, hematochezia, nausea and vomiting. Genitourinary: Negative for dysuria and hematuria. Neurological: Negative for disturbances in coordination, dizziness, headaches, loss of balance, numbness, paresthesias, seizures and tremors. Psychiatric/Behavioral: Negative for depression and memory loss. The patient has insomnia. The patient is not nervous/anxious. OSWESTRY DISABILITY SCORE: 47% PHYSICAL EXAM: Vital Signs Height: 5' 8" (172.7 cm) Weight - Scale: 156 lb (70.8 kg) Temp: 97.8 F (36.6 C) Temp Source: Oral Pulse: 84 Respirations: 18 BP: 126/87 Body mass index is 23.72 kg/m. General: Patient is well appearing and in no apparent distress. AOX3 Pulm: Respirations are regular and unlabored Skin: no rashes Eyes: PERRL, EOMI. Vision is grossly intact. Musculoskeletal: No loss of muscle tone or atrophy noted. Cardio: There is no peripheral edema, cyanosis or pallor. Extremities are warm and well perfused. Patient is oriented to person, place and time. CN 2-12 are grossly intact bilaterally Speech is fluent, non-dysarthric. Neck: No lymphadeoapthy Test Coordination: Finger to nose, rapid alternating movement are grossly intact MOTOR UE Extremity Deltoid C5 Biceps C6 Triceps C7 Wrist Extensor C6 Wrist Flexor C7 Intrinsic Muscles C7, C8 Right 5/5 5/5 5/5 5/5 5/5 5/5 Left 5/5 5/5 5/5 5/5 5/5 5/5 DTR: Reflexes Biceps Triceps Brachioradialis Knee Ankles Toe response Babinski Right 2+ 2+ 2+ 2+ 2+ Downgoing Left 2+ 2+ 2+ 2+ 2+ Downgoing Sensory exam: normal light touch sensation ROM: full Tone: normal Gao's: absent bilaterally THORACIC/LUMBAR ROM: moderately decreased Pain with active ROM: no Scoliosis: no LOWER EXTREMITIES Lower Extremity Iliopsoas Hip Flexors L2-3 Quadriceps Knee Extension L3-4 HamstringsKnee Flexion Tibialis anterior Dorsiflexors - L5 Gastrocnemius, soleus Plantar Flexors - S1 EHL Toe DF L5 Right 5/5 5/5 5/5 5/5 5/5 5/5 Left 5/5 5/5 5/5 5/5 5/5 5/5 Sensory exam : normal light touch sensation Extremity edema: absent Proprioception intact Tone: normal Clonus: absent Gait: antalgic Assistive devices: no assistive device IMAGING STUDIES: The imaging studies were reviewed. The CT scan films of the lumbar spine ( outside imaging) dated 04/02/19 shows: 1. Pseudoarthrosis at L3-4 with grade 1-2 spondylolisthesis 2. Fusion from L4-S1 with haloing around the right S1 screw Diagnostic Studies regarding patient complaints reviewed. Please see diagnostic report for further detail. DIAGNOSIS: Encounter Diagnosis and Orders ICD-10-CM 1. Pseudoarthrosis of lumbar spine S32.009K XR SCOLIOSIS 2 VIEWS XR LUMBAR SPINE AP LATERAL FLEXION AND EXTENSION CT LUMBAR SPINE W CONTRAST FL MYELOGRAM LUMBAR 2. Spondylolisthesis at L3-L4 level M43.16 XR SCOLIOSIS 2 VIEWS XR LUMBAR SPINE AP LATERAL FLEXION AND EXTENSION CT LUMBAR SPINE W CONTRAST FL MYELOGRAM LUMBAR 3. Lumbar post-laminectomy syndrome M96.1 XR SCOLIOSIS 2 VIEWS XR LUMBAR SPINE AP LATERAL FLEXION AND EXTENSION CT LUMBAR SPINE W CONTRAST FL MYELOGRAM LUMBAR Plans/Recommendations: Ms. Chanell Sanders is a pleasant 54 y.o. female who presents to the [facility] with failed lumbar fusion. She has a history of 3 prior lumbar surgeries. After review of patients symptoms, neurological exam, and diagnostic testing, she has pseudoarthrosis at L3-4 with grade 1-2 spondylolisthesis at this level. She also has haloing around the right S1 screw. Treatment options were discussed. Given her signs and symptoms , recommend scoliosis x-rays, lumbar flexion and extension x-rays, and lumbar CT myelogram for further evaluation. It was explained to the patient that it is important to obtain additional testing to make a proper diagnosis and surgical plan.We will make appropriate arrangements and the patient will return to Dr. Ceballos 's clinic to review the results. She may potentially benefit from DLIF/XLIF. The patient would like to proceed with diagnostic testing. She will follow up with her pain management provider for now. All questions and concerns were fully answered to the patient's satisfaction. Mango Stauffer MD Edger Operator [facility] [employer] [facility] Department of Neurosurgery documented in this encounter Plan of Treatment Name Type Priority Associated Diagnoses Order Schedule XR SCOLIOSIS 2 VIEWS Imaging Routine Pseudoarthrosis of lumbar 1 Occurrences starting spine 08/06/2019 until Spondylolisthesis at L3-L4 08/06/2020 level Lumbar post-laminectomy syndrome XR LUMBAR SPINE AP Imaging Routine Pseudoarthrosis of lumbar 1 Occurrences starting LATERAL FLEXION AND spine 08/06/2019 until EXTENSION Spondylolisthesis at L3-L4 08/06/2020 level Lumbar post-laminectomy syndrome CT LUMBAR SPINE W Imaging Routine Pseudoarthrosis of lumbar 1 Occurrences starting CONTRAST spine 08/06/2019 until Spondylolisthesis at L3-L4 03/06/2020 level Lumbar post-laminectomy syndrome FL MYELOGRAM LUMBAR Imaging Routine Pseudoarthrosis of lumbar 1 Occurrences starting spine 08/06/2019 until Spondylolisthesis at L3-L4 03/06/2020 level Lumbar post-laminectomy syndrome Health Maintenance Due Date Last Done Comments COLON CANCER SCREENING: COLONOSCOPY 1965 MAMMOGRAM ANNUAL 1965 TETANUS SHOT (ADULT) 1980 HEPATITIS C SCREENING 1983 HIV SCREENING 1983 CERVICAL CANCER SCREENING 3 YEAR FOLLOW UP 1986 MEDICARE AWV (Initial) 06/26/2018 FLU VACCINE > 6 MONTHS 01/24/2019 documented as of this encounter Results Not on filedocumented in this encounter Visit Diagnoses Diagnosis Pseudoarthrosis of lumbar spine - Primary Nonunion of fracture Spondylolisthesis at L3-L4 level Lumbar post-laminectomy syndrome Postlaminectomy syndrome, lumbar region documented in this encounter Insurance Payer Benefit Plan / Subscriber ID Effective Phone Address Type Group Dates MEDICAID [facility]-MEDICAID - xxxxxxxxx Effective for [address] Medicaid MEDICAID all dates [address] [place] [address] [employer] T[employer] SNP xxxxxxxxxxx 2018-Pres [address] Medicare HEALTHCARE O-CIGNA ent [id number] [place] [address] documented as of this encounter
[2019-08-26] MEDS ORDERED: DIAZEPAM 5 MG TABLET ONE (08:55)
[2019-08-26 09:22] VITALS: BMI 23.7
--- NOTE | 2019-08-26 11:05 | RAD REPORT ---
EXAM DESCRIPTION: RAD - L Spine With Bending Views - 08/26/2019 10:46 am CLINICAL HISTORY: M43.16,S32.009K,M96.1 Radiculopathy COMPARISON: No comparisons FINDINGS: Extensive postsurgical changes are present involving lower lumbar spine. Fusion hardware w ith lateral fusion masses seen spanning L4-S1 on the left. Fusion hardware is present right lateral m ass at the level of L3-4. 14 mm anterolisthesis of L3 on 4 is seen. No significant change in alignmen t seen with flexion or extension. Mild disc thinning is present elsewhere throughout the lumbar spine . Interbody plug is present at L5-S1. Aortic atherosclerosis. IMPRESSION: Multilevel degenerative changes of the lower lumbar spine with hardware place as zaine d. Static 14 mm anterolisthesis of L3 on 4 noted.
--- NOTE | 2019-08-26 11:09 | RAD REPORT ---
EXAM DESCRIPTION: RAD - Spine/Thoraco/Lumb Scolios - 08/26/2019 10:46 am CLINICAL HISTORY: M43.16,S32.009K,M96.1 Evaluate for scoliosis. COMPARISON: Myelography Lumbar dated 08/26/2019; L Spine With Bending Views dated 08/26/2019 FINDINGS: Mild levoscoliosis is seen in the upper thoracic spine. A subtle dextroscoliosis of the th oracolumbar spine also present. Extensive postsurgical hardware is present at the lower lumbar levels . 13 mm degenerative anterolisthesis with hardware in place is present at L3-4. Aortic atherosclerosi s noted. IMPRESSION: Mild upper thoracic and thoracolumbar scoliotic curvature is seen as detailed. No anomal ous vertebral body.
--- NOTE | 2019-08-26 11:34 | RAD REPORT ---
EXAM DESCRIPTION: RAD - Myelography Lumbar - 08/26/2019 10:44 am CLINICAL HISTORY: M43.16,S32.009K,M96.1 COMPARISON: L Spine With Bending Views dated 08/26/2019 TECHNIQUE: Lumbar puncture procedure for myelographic contrast injection was performed. The procedure, risks and alternatives to the procedure were discussed with the patient in detail. Aft er answering all questions, both oral and written consent were obtained. Time-out procedure was perfo rmed. The patient was placed in an oblique prone position on the fluoroscopic table. The skin of the lower back was prepped and draped in the usual sterile fashion. After anesthetizing the skin and deeper sof t tissues with 1% lidocaine, a 22 gauge needle was advanced into the thecal sac at the L3 level. 12 cc of Isovue 200M was injected. At the conclusion of the procedure the needle was withdrawn and a sterile bandage placed over the pun cture site. The patient tolerated the procedure well without immediate complications. Patient was the n sent for CT myelogram of the lumbar spine, separately reported. Total fluoro time: 1.7 minutes Images obtained: 7 IMPRESSION: Successful fluoroscopic guided lumbar puncture for CT lumbar myelogram.
--- NOTE | 2019-08-26 11:50 | RAD REPORT ---
EXAM DESCRIPTION: CT - Spine Lumbar Wo Con - 08/26/2019 10:44 am CLINICAL HISTORY: Radiculopathy. M43.16,S32.009K,M96.1 COMPARISON: Spine Lumbar Wo Con dated 04/02/2019 TECHNIQUE: Axial myelographic CT imaging of the lumbar spine was performed with high-resolution disc space imaging and coronal and sagittal re-formatted images. Lumbar puncture for myelographic contras t injection is separately reported. All CT scans are performed using dose optimization technique as appropriate and may include automated exposure control or mA/KV adjustment according to patient size. FINDINGS: Cortez darwin with intrapedicular screws is present spanning L4-S1 on the left with a fus ion mass identified. A short inter pedicular darwin is present spanning L3-4 on the right with a mild fu romain mass seen. Disc space hardware noted at L5-S1 only minimal bony fusion seen at this level. 13 mm anterolisthesis is present of L3 on 4 with bilateral pars defects noted. Mild vertebral body sc lerosis with vacuum disc degeneration is present involving the L3-4 level. The central canal appears widely patent throughout the lumbar spine. Large laminectomy defects are present posteriorly at L3, L 4 and L5. The sacroiliac joints are symmetric. Small defect within the right ischium likely related to previous bone graft harvesting. IMPRESSION: Extensive postsurgical lower lumbar spine. Hardware is in place as detailed. 13 mm anterolisthesis of L3 on 4 with bilateral pars defects present. Vacuum disc degeneration and en dplate sclerosis is also present at this level.
[2019-08-26 13:34] VITALS: BP 99/68; TEMP 98; O2SAT 99
== END 2019-08-26 13:27 | disposition home or self-care (01) ==
LOC: DS 08:22
PROVIDERS: ATTEND Neurological Surgery
DX: S32.009K Unspecified fracture of unspecified lumbar vertebra, subsequent encounter for fracture with nonunion (principal); M43.16 Spondylolisthesis, lumbar region; M96.1 Postlaminectomy syndrome, not elsewhere classified
CPT/HCPCS: 62304; 72084; 72114; 72131

== ENCOUNTER 2020-11-04 18:32 | Emergency (ER) | payer OTHER ==
--- OUTSIDE RECORDS SUMMARY | 2020-11-04 18:36 | XMS REPORT | Continuity of Care Document ---
:1965 Author Organization [facility] t Address [address] [place] [address] Care Team Providers Name Role Phone SHANE Primary Care Physician Unavailable Klaus Stauffer MD Attending Clinician Unavailable Klaus Stauffer MD Attending Clinician MARIIA SIMS M.D. Attending Clinician Unavailable EASTON Attending Clinician Unavailable ANETTE Attending Clinician Unavailable MARIIA SIMS M.D. Admitting Clinician Unavailable EASTON Admitting Clinician Unavailable ANETTE Admitting Clinician Unavailable Problems Condition Condition Condition Status Onset Resolution Last Treating Co mments Source Name Details Category Date Date Treatment Clinician Date Pain in Diagnosis Active 2017-01-26 Me moria left wrist 02:46:27 l Pain in [place] left wrist Active Diagnosis 01/26/2017 Tanisha Najam Pain in Diagnosis Active 2017-01-26 Me moria right 02:46:27 l wrist Pain in [place] right wrist Active Diagnosis 01/26/2017 Tanisha Najam High risk Diagnosis Active 2018-04-19 Memoria medication 02:48:36 l use High [place] risk medication use Active Diagnosis 04/19/2018 Tanisha Najam Pain in Diagnosis Active 2018-04-19 Me moria right knee 02:48:36 l Pain in [place] right knee Active Diagnosis 04/19/2018 Tanisha Najam Pain in Diagnosis Active 2018-04-19 Me moria left knee 02:48:36 l Pain in [place] left knee Active Diagnosis 04/19/2018 Tanisha Najam Pain, Diagnosis Active 2018-04-19 Mem oria joint, 02:48:36 l multiple Pain, [place] sites joint, multiple sites Active Diagnosis 04/19/2018 Tanisha Najam Pain in Diagnosis Active 2018-04-19 Me moria left 02:48:36 l shoulder Pain in [place] nn left shoulder Active Diagnosis 04/19/2018 Tanisha Najam Pain in Diagnosis Active 2018-04-19 Me moria right 02:48:36 l shoulder Pain in [place] right shoulder Active Diagnosis 04/19/2018 Tanisha Najam Lumbago Problem Active 2018-12-26 Domo hu with 02:46:11 l sciatica, Lumbago Herm isabelle right side with sciatica, right side Active Problem 12/26/2018 Tanisha Najam Chronic Problem Active 2018-12-26 Domo hu pain 02:46:11 l disorder Chronic [place] nn pain disorder Active Problem 12/26/2018 Tanisha Najam Rheumatoid Problem Active 2018-12-26 M emoria arthritis 02:46:11 l without [place] rheumatoid Rheumatoid factor, arthritis unspecifie without d ankle rheumatoid and foot factor, unspecifie d ankle and foot Active Problem 12/26/2018 Tanisha Najam Right hand Diagnosis Active 2017-01-26 Memoria pain 02:46:27 l Right [place] hand pain Active Diagnosis 01/26/2017 Tanisha Najam Left hand Diagnosis Active 2017-01-26 Memoria pain 02:46:27 l Left [place] hand pain Active Diagnosis 01/26/2017 Tanisha Najam Allergies, Adverse Reactions, Alerts Allergy Allergy Status Severity Reaction(s) Onset Inactive Treating Comm ents Source Name Type Date Date Clinician Mervin Jeffries Active Info Not 2017-06 Memoria Available 0-23 l 00:00: [place] 00 Gabapent Gabapent Active Info Not 2017-06 Domo hu in in Available 0-23 l 00:00: 00 Social History Social Habit Start Date Stop Date Quantity Comments Source Sex Assigned At [facility] Medications Ordered Filled Start Stop Current Ordering Indication Dosage Frequency Signature Comments Components Source Medication Medication Date Date Medication? Clinician (SIG) Name Name Remicade Yes Tanisha 5mg/kg Memor ia 2-11 Najam (390mg) l 00:00: [place] 00 Nortripytli 2017-06 Yes Tanisha not Domo hu ne HCl 0-25 Najam defined l 02:48: [place] 36 Seroquel 2017-06 Yes Tanisha 1 tablet Mem oria 0-25 Najam at bedtime l 02:48: Viet 36 Naproxen 2017-06 Yes Tanisha 1 tablet Mem oria 0-25 Najam as needed l 02:48: Viet 36 Benadryl 2017-06 Yes Tanisha 1 tablet Mem oria Allergy 0-25 Najam as needed l 02:48: Viet 36 Dulcolax 2017-06 Yes Tanisha 1 Memoria 0-25 Najam suppositor l 02:48: y as [place] 36 needed Simvastatin 2017-06 Yes Tanisha 1 tablet Memoria 0-25 Najam in the l 02:48: evening Viet 36 Benztropine 2017-06 Yes Tanisha 1 tablet Memoria Mesylate 0-25 Najam at bedtime l 02:48: Viet Vitamin E 2017-06 Yes Tanisha 1 capsule M emoria 0-25 Najam l 02:48: Viet 36 Promethazin 2017-06 Yes Tanisha 1 tablet Memoria e HCl 0-25 Najam as needed l 02:48: Viet 36 Methotrexat 2017-06 Yes Tanisha 8 tabs Me moria e Sodium 0-25 Najam l 02:48: Viet 36 Vraylar 2017-06 Yes Tanisha 1 capsule Mem oria 0-25 Najam l 02:48: Viet Vitamin C 2017-06 Yes Tanisha 1 tablet Me moria 0-25 Najam l 02:48: Viet Magnesium 2017-06 Yes Tanisha 1 tablet Me moria Oxide 0-25 Najam as needed l 02:48: Viet 36 Fish Oil 2017-06 Yes Tanisha 1 capsule Me moria 0-25 Najam l 02:48: Viet 36 Methotrexat 2017-06 Yes Tanisha TAKE 10 M emoria e 0-25 Najam TABLETS l 02:48: ONCE A Viet 36 WEEK Remicade 2017-06 Yes Tanisha not Memoria 0-25 Najam defined l 02:48: Viet 36 Ondansetron 2017-06 Yes Tanisha 2 tablets Memoria HCl 0-25 Najam l 02:48: Viet 36 Zoloft 2017-06 Yes Tanisha 1 tablet Memor ia 0-25 Najam l 02:48: Viet 36 Omeprazole 2017-06 Yes Tanisha 1 capsule Memoria 0-25 Najam l 02:48: Viet 36 Levothyroxi 2017-06 Yes Tanisha 1 tablet Memoria ne Sodium 0-25 Najam on an l 02:48: empty Viet 36 stomach in the morning Suboxone 2017-06 Yes Tanisha 1 film Memor ia 0-25 Najam under the l 02:48: tongue and Viet 36 allow to dissolve Methotrexat 2016-06 Yes Tanisha 5 tabs Me moria e Sodium 2-18 Najam l 03:46: Viet 39 PredniSONE 2016-06 Yes Tanisha 1 tab(s) M emoria 2-12 Najam with food l 00:00: [place] 00 Folic Acid 2016-06 Yes Tanisha 1 tablet M emoria 1-17 Najam l 00:00: [place] 00 Remicade Yes Tanisha not Memoria 7-26 Najam defined l 02:46: Viet 49 Benadryl Yes Tanisha 1 tablet Mem oria Allergy 7-26 Najam as needed l 02:46: Viet 49 Magnesium 2017-0 Yes Tanisha 1 tablet Me moria Oxide 7-26 Najam as needed l 02:46: Viet 49 Levothyroxi Yes Tanisha 1 tablet Memoria ne Sodium 7-26 Najam on an l 02:46: empty Viet 49 stomach in the morning Seroquel 2017 Yes Tanisha 1 tablet Mem oria 7-26 Najam at bedtime l 02:46: Viet 49 Naproxen 2017-0 Yes Tanisha 1 tablet Mem oria 7-26 Najam as needed l 02:46: Viet 49 Suboxone 2017-0 Yes Tanisha 1 film Memor ia 7-26 Najam under the l 02:46: tongue and Viet 49 allow to dissolve Fish Oil 2016- Yes Tanisha 1 capsule Me moria 7-26 Najam l 02:46: Viet 49 Simvastatin 2017-0 Yes Tanisha 1 tablet Memoria 7-26 Najam in the l 02:46: evening Viet 49 Ondansetron 2017-0 Yes Tanisha 2 tablets Memoria HCl 7-26 Najam l 02:46: Viet 49 Zoloft Yes Tanisha 1 tablet Memor ia 7-26 Najam l 02:46: Viet 49 Dulcolax Yes Tanisha 1 Memoria 7-26 Najam suppositor l 02:46: y as [place] 49 needed Benztropine Yes Tanisha 1 tablet Memoria Mesylate 7-26 Najam at bedtime l 02:46: Viet 49 Vitamin C Yes Tanisha 1 tablet Me moria 7-26 Najam l 02:46: Viet 49 Promethazin Yes Tanisha 1 tablet Memoria e HCl 7-26 Najam as needed l 02:46: Viet 49 Omeprazole Yes Tanisha 1 capsule Memoria 7-26 Najam l 02:46: Viet 49 Vitamin E Yes Tanisha 1 capsule M emoria 7-26 Najam l 02:46: Viet 49 PredniSONE Yes Tanisha 1 tablet M emoria 7-20 Najam l 00:00: PredniSONE Yes Tanisha 1 tablet M emoria 7-20 Najam l 00:00: Folic Acid Yes Tanisha 1 tablet M emoria 5-01 Najam l 00:00: Medrol Yes Tanisha as Memoria 4-20 Najam directed l 00:00: Zoloft Zoloft Yes Na Cabrera [address] [facility] Yes Na Cabrera [address] [facility] PredniSONE PredniSONE Yes Na Cabrera [address] [facility] Remicade Remicade Yes Na Cabrera as [facility] Amitriptyli Amitriptyli Yes Na Cabrera [address] [facility] [address] [facility] HCl ne [facility] Methotrexat Methotrexat Yes Na Cabrera as [facility] (Anti-Rheum (Anti-Rheum M emoria atic) atic) l [facility]pat[facility] ent [facility]ics Mobic Mobic Yes Na Cabrera [address] [facility]ics Simvastatin Simvastatin Yes Na Cabrera [address] [facility] ent Clinics Vital Signs Vital Name Observation Time Observation Value Comments Source Height 2018-04-17 20:15:00 [facility] [place] Diastolic (mm Hg) 2018-04-17 20:15:00 Mem orial [place] Systolic (mm Hg) 2018-04-17 20:15:00 Domo rial [place] Weight 2018-04-17 20:15:00 [facility] [place] Height 2017-11-09 16:15:00 [facility] [place] Diastolic (mm Hg) 2017-11-09 16:15:00 Mem orial [place] Systolic (mm Hg) 2017-11-09 16:15:00 Domo rial [place] Weight 2017-11-09 16:15:00 [facility] [place] Height 2017-06-06 19:15:00 [facility] [place] Diastolic (mm Hg) 2017-06-06 19:15:00 Mem orial [place] Systolic (mm Hg) 2017-06-06 19:15:00 Domo rial [place] Weight 2017-06-06 19:15:00 [facility] [place] Height 2017-01-12 19:15:00 [facility] [place] Diastolic (mm Hg) 2017-01-12 19:15:00 Mem orial [place] Systolic (mm Hg) 2017-01-12 19:15:00 Domo rial [place] Weight 2017-01-12 19:15:00 [facility] [place] Height 2016-10-03 15:30:00 [facility] [place] Diastolic (mm Hg) 2016-10-03 15:30:00 Mem orial [place] Systolic (mm Hg) 2016-10-03 15:30:00 Domo rial [place] Weight 2016-10-03 15:30:00 [facility] [place] Procedures This patient has no known procedures. Encounters Start End Encounter Admission Attending Care Care Encounter Source Date/Time Date/Time Type Type Clinicians Facility Department ID 2020-02-10 Outpatient [facility] [id number] [facility] 16:41:48 2020-11-03 2020-11-03 Outpatient [facility] [id number] [facility]00 [facility] ent Clinics 2020-11-02 2020-11-02 Outpatient [facility] [id number] [facility] 2020-11-02 2020-11-02 Outpatient [facility] [id number] [facility] 2020-09-04 2020-09-04 Outpatient [facility] [id number] [facility] 2020-06-23 2020-06-23 Outpatient [facility] [id number] [facility] 2020-02-10 2020-02-10 [facility] [id number] [address] 11:00:00 11:00:00 [place] [address] [address] [facility] Family Medicine l Medicine Outpati ent Clinics 2020-01-30 2020-01-30 Outpatient [id number] 09:40:00 09:40:00 2020-01-22 2020-01-22 [facility] [id number] 16:17:00 16:17:00 [place] [address] [address] [facility] Medicine l Medicine Outpati ent Clinics 2019-12-31 2019-12-31 [facility] [id number] 14:21:00 14:21:00 [place] [address] [address] [facility] Medicine l Medicine Outpati ent Clinics 2019-11-15 2019-11-15 [facility] [id number] 14:58:00 14:58:00 [place] [address] [address] [facility] Medicine l Medicine Outpati ent Clinics 2019-10-07 2019-10-07 [facility] [id number] 13:16:00 13:16:00 [place] [address] [address] [facility] Medicine l Medicine Outpati ent Clinics 2019-08-06 2019-08-06 Office ALEXANDRA Stauffer [id number] 07:42:37 11:40:21 Visit Mango HAMMONDS [id number] Klaus Y [id number] 2019-07-09 2019-07-09 [facility] [id number] 11:29:00 11:29:00 [place] [address] [facility] 2019-06-17 2019-06-17 [facility] [id number] 10:48:00 10:48:00 [place] [employer] [facility] 2019-06-13 2019-06-13 [facility] [id number] 11:20:00 11:20:00 [place] [employer] [facility] 2018-11-13 2018-11-13 Outpatient [facility] [id number] Memoria 13:55:00 13:55:00 Rheumatol Rheumatolog l [facility]gy y [facility] 2018-07-12 2018-07-12 Outpatient [facility] [id number] Memoria 13:07:00 13:07:00 Rheumatol Rheumatolog l ogy y [facility] 2018-07-02 2018-07-02 Outpatient [facility] [id number] Memoria 08:37:00 08:37:00 Rheumatol Rheumatolog l ogy y [facility] 2018-04-17 2018-04-17 Outpatient [facility] [id number] Memoria 15:15:00 15:15:00 Rheumatol Rheumatolog l ogy y [facility] 2018-04-13 2018-04-13 Outpatient [facility] [id number] Memoria 09:21:00 09:21:00 Rheumatol Rheumatolog l ogy y [facility] 2018-01-29 2018-01-29 Outpatient [facility] [id number] Memoria 16:16:00 16:16:00 Rheumatol Rheumatolog l ogy y [facility] 2018-01-22 2018-01-22 Outpatient [facility] [id number] Memoria 09:27:00 09:27:00 Rheumatol Rheumatolog l ogy y [facility] 2017-11-09 2017-11-09 Outpatient [facility] [id number] Memoria 11:15:00 11:15:00 Rheumatol Rheumatolog l ogy y [facility] 2017-10-19 2017-10-19 Outpatient [facility] [id number] Memoria 13:41:00 13:41:00 Rheumatol Rheumatolog l ogy y [facility] 2017-06-06 2017-06-06 Outpatient [facility] [id number] Memoria 13:15:00 13:15:00 Rheumatol Rheumatolog l ogy y [facility] 2017-05-29 2017-05-29 Outpatient [facility] [id number] Memoria 08:41:00 08:41:00 Rheumatol Rheumatolog l ogy y [facility] 2017-05-22 2017-05-22 Outpatient [facility] [id number] Memoria 09:53:00 09:53:00 Rheumatol Rheumatolog l ogy y [facility] 2017-01-12 2017-01-12 Outpatient [facility] [id number] Memoria 14:15:00 14:15:00 Rheumatol Rheumatolog l ogy y [facility] 2017-01-05 2017-01-05 Outpatient [facility] [id number] Memoria 16:52:00 16:52:00 Rheumatol Rheumatolog l ogy y [facility] 2016-12-02 2016-12-02 Inpatient E [facility] [id number] Medical 16:04:00 16:04:00 [facility] 2016-11-22 2016-11-22 Outpatient [facility] [id number] Memoria 10:04:00 10:04:00 Rheumatol Rheumatolog l ogy y [facility] 2016-11-16 2016-11-16 Emergency E [facility] [id number] Medical 01:31:00 01:31:00 [facility] 2016-11-15 2016-11-15 Outpatient [facility] [id number] Memoria 13:08:00 13:08:00 Rheumatol Rheumatolog l ogy y [facility] 2016-11-07 2016-11-07 Outpatient [facility] [id number] Memoria 11:38:00 11:38:00 Rheumatol Rheumatolog l ogy y [facility] 2016-11-07 2016-11-07 Outpatient [facility] [id number] Memoria 11:35:00 11:35:00 Rheumatol Rheumatolog l ogy y [facility] 2016-11-01 2016-11-01 Outpatient [facility] [id number] Memoria 13:26:00 13:26:00 Rheumatol Rheumatolog l ogy y [facility] 2016-10-24 2016-10-24 Outpatient [facility] [id number] Memoria 10:15:00 10:15:00 Rheumatol Rheumatolog l ogy y [facility] 2016-10-12 2016-10-12 Outpatient [facility] [id number] Memoria 14:47:00 14:47:00 Rheumatol Rheumatolog l ogy y [facility] 2016-10-06 2016-10-10 Inpatient 1 [facility] [id number] [facility] 01:45:00 14:23:00 [facility] 2016-10-03 2016-10-03 Outpatient [facility] [id number] Memoria 10:30:00 10:30:00 Rheumatol Rheumatolog l ogy y [facility] 2016-09-13 2016-09-13 Outpatient 3 CHRISTO CHEEMA [id number] [facility] 06:12:00 08:12:00 [facility] 2016-08-09 2016-08-09 Outpatient 3 CHRISTO CHEEMAE [id number] [facility] 05:55:00 05:55:00 [facility] Results Test Description Test Time Test Comments Results Result Comments Source HEPATITIS C ANTIBODY 2018-02-13 14:43:00 Test Item Value Reference Range Interpretation Comme nts HCV (test code = HCV) NEGATIVE NEGATIVE Hepati tis C Antibody test is for screening purposes only. All reactives will be confirmed by ad ditional testing. [employer] TB [id number] 11:48:00 Test Item Value Reference Range Interpretation Comments TBQF (test code = NEGATIVE NEGATIVE TESTING PE RFORMED AT TBQF) [place] [address] (RES ULTS AVAILABLE UNDER SEPARATE COVER) HEPATITIS B SURFACE [id number] 13:48:00 Test Item Value Reference Range Interpretation Comments HBSAB (test code = NEGATIVE NEGATIVE HEPA TITIS B SURFACE HBSAB) ANTIBODY INTERP RETATION: NEGATIVE: <5.0 0 MIU/ML ANTI-HBS. ANEL ENT IS PRESUMED TO BE NOT IMMUNE TO INFECTI ON WITH HBV. INDETERMIN ATE: >5-<10 MIU/ML. UNABLE TO DETERMINE IF AN TI-HBs IS PRESENT AT LEVELS CONSISTANT WITH IMMUNITY. PATIENT'S IMMUN E STATUS SHOULD BE FURTHER ASSESSED BY CON SIDERING OTHER CLINICAL INFORMATION OR RETESTING ANOTHER SPECIMEN DRAWN AT A LATER TIME. POSITIVE: ANTI-HBS DETECTED AT >10 MIU/ML. PATIENT IS CONS IDERED TO BE IMMUNE TO INFECTION WITH HBV. IT HAS NOT BEEN DE TERMINED WHAT THE C LINICAL SIGNIFICANCE IS FOR VALUES GREATER THAN OR EQUAL TO 12 MLU/ML OTHER THAN THE INDIVIDUAL IS CONSIDERED TO BE IMMUNE TO HBV INFECTIO N. HEPATITIS B SURF [id number] 13:48:00 Test Item Value Reference Range Interpretation Comments HEPBSAG (test code = NEGATIVE NEGATIVE Hepatit is B Surface HEPBSAG) Antigen is for screening purpo se only. All reactives w ill be sent to referen ce lab for confirmatio n. HEP B CORE AB [id number] 13:48:00 Test Item Value Reference Range Interpretation Comments HEP B CORE AB, TOTAL (test code = NEGATIVE NEGATIVE HBCABTOT) [id number] 13:47:00 Test Item Value Reference Range Interpretation Comments SODIUM (test code = 137 MMOL/L 137-145 NA) K+ (test code = 5.1 MMOL/L 3.5-5.1 PLEASE NOTE NEW KSERUM) REFERENCE RANGE (S) IN EFFECT EFFECTIVE 010 - NEW ANALYZER (V ITROS 5600) CHLORIDE (test code 101 MMOL/L 98-107 = CL) CO2 (test code = 28 MMOL/L 22-30 CO2) BUN (test code = 14 MG/DL 7-17 BUN) CREA (test code = 0.6 MG/DL 0.7-1.2 L CREA) GLUCOSE (test code 94 MG/DL 70-99 Fasting glucose = GLUCOSE) normal <100 MG/ DL- [employer] recommendation* * CALCIUM (test code 9.7 MG/DL 8.4-10.2 = CABLOOD) TOTPROT (test code 8.5 G/DL 6.3-8.2 H = TOTPROT) ALBUMIN (test code 4.9 G/DL 3.5-5.0 = ALBSERUM) BILITOT (test code 0.3 MG/DL 0.2-1.3 = BILITOT) AST (test code = 36 U/L 15-46 AST) PHOSALK (test code 93 U/L 38-126 = PHOSALK) ALT (test code = 41 U/L 13-69 ALT) GFR (test code = 112 A GFR of >9 0 GFR) mL/min/1.73m2 mL/min/1.73m2 is considered norm al. SEDIMENTATION [id number] 12:33:00 Test Item Value Reference Range Interpretation Comments SED RATE (test code = ESR) 29 MM/HR 0-20 H [id number] 12:04:00 Test Item Value Reference Range Interpretation Comments WBC (test code = 9.2 K/UL 3.5-10.9 WBC) RBC (test code = 4.02 M/UL 4.0-5.0 RBC) HGB (test code = 13.3 G/DL 11.5-15.5 HGB) HCT (test code = 37.8 % 34-46 HCT) MCV (test code = 94.0 FL 80-98 MCV) MCH (test code = 33.1 PG 28-32 H MCH) MCHC (test code = 35.2 G/DL 32.5-36.5 MCHC) RDW (test code = 13.2 % 11.5-14.5 RDW) PLT (test code = 334 K/UL 150-450 PLT) MPV (test code = 10.6 FL 7.4-10.4 H MPV) MANDIFF (test code = NO MANDIFF) SCAN (test code = NO SCAN) NEUT% (test code = 64.9 % 40-75 NEUT%) LYMPH% (test code = 24.3 % 24-44 LYMPH%) MONO% (test code = 8.3 % 0-13 MONO%) EOS% (test code = 1.7 % 0-4 EOS%) BASO % (test code = 0.3 % 0-2 BASO%) IG% (test code = 0.5 % 0-1 IG% = Metam yelocytes, IG%) Myelocytes, and Promyelocytes. (Immature neutr ophils not including " bands".) > 3% IG indic ates risk of sepsis NRBC% (test code = 0 /100 WBC NRBC%) ABS NEUT (test code 5.9 K/UL 1.2-7.2 = NEUT) XR ABDOMEN [id number] 08:05:16Information: Small bowel obstruction and nasogastric tube.Abdomen [...] the nasogastric tube. See above.XR ABDOMEN KUB [id number] 05:30:54History: Nasogastric tube placement, small bowel obstructionABDOMEN KUB, [...] surgical nursing station byDr. Gregory at 2221 hours. 91513&PELVIS [id number] 16:25:07CT ABDOMEN AND CT PELVIS WITH CONTRAST: HISTORY: Abdominal pain, nausea and vomiting, hernia repair on 09/13/2016COMPARISON: CT of 01/29/2016. Abdominal x-ray done earlier [...] of previous graft right colectomy.XR ABDOMEN KUB 1V 2016-12-03 11:37:59History: Nasogastric tube placement, small bowel obstructionABDOMEN KUB:COMPARISON: Abdominal film done earlier the same day.A nasogastric tube is now seen with the tip in the area of the fundus ofthe s tomach.Persistent small bowel distention is observed. Some air is seen inundistended colon.Evidence of previous lumbar surgery is again noted.IMPRESSION:Nasogastric tube coursing into the stomach area.Persistent small boweldistention.XR ABDOMEN [id number] 08:32:14HISTORY: Small bowel obstruction, nasogastric tubeABDOMEN COMPLETE (supine and upright):COMPARISON: Supine and upright views were obtained.A nasogastric tube [...] Pederson at 0836 hours on 12/03/2016.XR ABDOMEN [id number] 10:09:50History:: Abdominal pain and constipationAbdomen 2 viewsCorrelation was made with the patient's prior views of the abdomen dated01/29/2016 demonstrating multiple gas distended loops of small bowel withmultiple air-fluid levels. Some residual gas and fecal matter notedthroughout the colon. Nonspecific gastric air-fluid level identified. Nogross free intraperitoneal air is noted. Surgical clips are identi fiedwithin the right upper quadrant of the abdomen. Lumbar spine fusion isagain demonstrated.IMPRESSION:1. Multiple gas distended loops of small bowel with multiple air-fluidlevels highly suspicious for at least a partial mechanical obstruction2. Retained fecal matter and gas within the colon3. Nonspecific gastric air-fluid level4. Status post cholecystectomy5. Status post lumbar spine fusion.XR CHEST SGL 1V, [id number] 07:24:43XR CHEST SGL 1V, FRONTALDIAGNOSIS: Chest painThe heart and mediastinum are stable. A left lower lobeopacity hasdeveloped since 06/20/2014, pneumonia would be a prime consideration.The remainder the chest is normal.IMPRESSION: Left lower lobe opacity, most likely pneumonia developingsince 06/20/2014.CT ABDOMEN/PELVIS WITH 2016-10-17 00:58:00[place] [id number] IMAGING REPORTPatient Name: IGOR LOW of Service: [id number]: 51 Sex: F Order #: [id number] Room: ERSDOB: 1965 X-Ray Number: [id number] Record Number: [id number] Hospital Number: [id number] Physician: Nasrin PENN Physician: ZULMA DELUCA abdomen and pelvis withIV contrast 2359 hours 10/16/2016HISTORY: Acute abdominal pain and distention, history of rheumatoidar thritis, multiple prior abdominal surgeries, previous partial bowelresectionCOMPARISON: CT scan from10/05/2016FINDINGS: There is no free [...] authenticated by TATY SHAIKH 2016-10-17 00:55:36ABDOMEN 2 VIEWS 2016-10-16 23:48:[address] [id number] IMAGING REPORTPatient Name: IGOR LOW of Service: [id number]: 51 Sex: F Order #: [id number] Room: ERSDOB: 1965 X-Ray Number: [id number] Record Number: [id number] Hospital Number: [id number] Physician: Nasrin PENN Physician: Adria DELUCA 2 views 2253 hours10/16/2016HISTORY: Abdominal pain and distention, prior spine surgery and herniasurgeryCOMPARISON: 09/24FINDINGS: There is moderate bowel gas, mainly in the large bowel, withoutsignificant dilation.A few air-fluid levels are visualized. There arescattered feces. There is no free air. There has been spine surgery, alsocholecystectomy.IMPRESSION: The bowel gas pattern is nonspecific but does not suggestobstructionElectronically Signed By: Graham Chan M.D., 10/16/2016 11:46 PMLegally authenticated by TATY SHAIKH 2016-10-16 23:46:21ABDOMEN 2 [id number] 12:35:00BAJessica [place] [id number] IMAGING REPORTPatient Name: IGOR LOW NJate of Service: [id number]: 51 Sex: F Order #: [id number] [facility] 2NEDOB[facility] 1965 X-Ray Number: [id number] Record Number: [id number] Hospital Number: [id number] Physician: Lili MCCORMACK Physician: No SILVERMAN 2 views 11:43AMComparisons: 02/03/2016History: Abdominal pain, possible small bowel obstruction versus ileus.Findings:Bowel gas pattern is nonspecific, nonobstructive.There is no free air or mass effect.No definite r enal or ureteral calcifications are seen overlying the kidneysor expected course of ureters.There are postoperative changes of the lumbar spine.Impression:No definite acute intra-abdominal abnormality.Electronically Signed By: Jeromy Michelle M.D., 10/08/2016 12:32 PMLegally authenticated by MAURICE NUÑEZ 2016-10-08 12:32:33CT ABDOMEN/PELVIS [id number] 22:59:00[place] [id number] IMAGING REPORTPatient Name: IGOR LOW of Service: [id number]: 51 Sex: F Order #: [id number] Room: ERSDOB: 1965 X-Ray Number: [id number] Record Number: [id number] Hospital Number: [id number] Physician: SONI HAYES - Ordering Physician: James VASQUEZ CT abdomen and pelvis with IV contrast 10/05/2016 at 2201 hoursHistory: Abdomen and back pain with constipation. Recent hernia repair.Prior cholecystectomy, hysterectomy, appendectomy and partial colectomy.Inflammatory bowel syndrome. Prior pain pump placement and removal.Comparison: 09/25/2016This CT exam was performed using one or more of the following dosereduction techniques: Automated exposure control, adjustment of th e mAand/or kV according to patient size, or [...] as discussed.Electronically Signed By: Timi Gonzalez M.D., 10/05/2016 10:57 PMLegally authenticated by RICARDO MICHAUD 2016-10-05 22:57:24Z-ORG SCREEN MAMMO [place] AND [place] 2016-09-28 13:44:[address] [id number] IMAGING REPORTPatient Name: IGOR LOW SDate of Service: [id number]: 51 Sex: F Order #: [id number] Room: OPODOB: 1965 X-Ray Number: [id number] Record Number: [id number] Hospital Number: [id number] Physician: Anand HOPPER Physician: LILO HOPPER DIGITAL SCREENING MAMMOGRAPHY WITH TOMOSYNTHESIS AND CADCOMPARISON: None available.TECHNIQUE: Craniocaudal and oblique mediolateral tomosynthesis wasperformed. Craniocaudal 2-D images were also obtained. CAD data areevaluated.FINDINGS: The breasts are heterogeneously extremely dense, which limitsmammographic sensitivity. There are small benign calcificationsbilaterally. 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 In up to 10% of patients, cancers are not visible on mammography.2. If a suspicious lump is palpated, biopsy should not be deferredbecause of a negative mammogram.MAMMOGRAPHY AT [facility] IS ACCREDITED BY THE [employer] OFRADIOLOGYTHANK YOU FOR YOUR OUTPATIENT REFERRALjhbElectronically Signed By: Bert Malagon M.D., 09/28/2016 1:42 PMLegally authenticated by AURELIO Bah 2016-09-28 13:42:08CT ABDOMEN/PELVIS [id number] 17:12:[address] [id number] IMAGING REPORTPatient Name: IOGR LOW SDate of Service: [id number]: 51 Sex: F Order #: [id number] [facility] 1965 [facility] Number: [id number] Record Number: [id number] Hospital Number: [id number] Physician: Mekhi WALL Physician: GRIFFIN PADILLA abdomen and pelvis with contr ast, 09/25/2016, 1553 hoursHistory: Abdominal pain. Status post surgery. Recent hernia mesh placement.Colon resection.Technique: IV contrast. Axial tomographic images are performed. [place] coronal formatted images are also reviewed. This CT exam was performedusing one or more of the following dose reduction techniques: Automatedexposure control, adjustment of the MA and/or KV according to patient sizeor use of iterative reconstruction technique.Comparison: 08/16/2016.Findings: Since prior, there is presumed periumbilical ventral herniarepair with placement of possible mesh. Small pancake shaped h ypodensefluid collection has developed within the mesh/subcutaneous periumbilicalcompartment measuring on the order of 7.1 [...] level. There is stable grade 1 L3-4 anterolis thesis.Lung bases show calcified granuloma within the right lower lobe anteriorly.Some mild linear atelectasis and/or scarring of both lower lobes is seen.Impression:1. Presumed interval periumbilical ventral hernia repair with placement ofmesh. Small pancake shaped fluid projects within the mesh/periu mbilicalsubcutaneous fat compartment. Process could represent liquefying hematomaor postoperative seroma. Correlate clinically to rule out inflammatoryetiology. No obvious gas is noted however.2. Otherwise background chronic findings as discussed above.Electronically Signed By: Bert Crawley M.D., 09/25/2016 5:10 PMLegally authenticated by JOSE MIGUEL KEARNEY 2016-09-25 17:10:[id number] 13:16:00QRS Interval: 103msQT Interval: 390msQTC Interval: 442msP [place]: 63degQRS [place]: 53degT Wave [place]: 49degP-R Interval: 198msecRR Interval: 779msecHeart Rate: 77bpmI 40 [place]: 60degT 40 [place]: 45degST [place]: 4 7degEKG Severity: - NORMAL ECG -REPORT:Sinus rhythmHEPATITIS C ANTIBODY SCREEN 2016-08-20 08:54:00 Test Item Value Reference Range Interpretation Comments SCRN HCV (test code NEGATIVE NEGATIVE Hepatiti s C Antibody test = SCRN HCV) is for screenin g purposes only. All react sharon will be confirmed by additional test ing. ER SCREEN FOR HIV 08:15:00 Test Item Value Reference Range Interpretation Comments HIV 1/2 AB (test NONREACTIVE NONREACTIVE This test i s used for code = SCRN HIV) SCREENING p urposes only. All reactive re sults are prelimenary and confirmation re sults will follow. CDIFF AMPLIFIED [id number] 12:58:00 Test Item Value Reference Range Interpretation Comments C DIFFICILE TESTING NEGATIVE NEGATIVE PSEUDOME MBRANOUS COLITIS, ON STOOL (test code BY JULIA QUIROZ, IS = CDIFF) DIARRHEA, IN PA TIENTS OLDER THAN 6 MO NTHS OF AGE, CAUSED BY LONG-TERM ANTIBIOTIC EXPO SURE. NON-DIARRHEAL S TOOLS WILL NOT BE TESTED. C.DIFF LOT # (test [id number] code = CDIFFLOT) C. DIFF EXPIRATION 07-08-2017 DATE (test code = CDIFFEXP) CT ABDOMEN/PELVIS [id number] 15:02:[address] [id number] IMAGING REPORTPatient Name: IGOR LOW SDate of Service: [id number]: 51 Sex: F Order #: [id number] Room: [facility]: 1965 X-Ray Number: [id number] Record Number: [id number] Hospital Number: [id number] Physician: NIKO DESHPANDEOrdering Physician: LIZA DESHPANDE abdomen pelvis with contrast [...] small bowel. Mildileus is favored. Consider short-term follow- up.3. 6 mm noncalcified pleural-based nodular density posterior left lowerlobe, axial image 11. This is new compared to 04/11/2016. This couldrepresent a small area of atelectasis or scar. A significant pulmonarynodule is thought less likely but not entirely excluded. Consider chest CTto evaluate for additional pulmonary nodules.Electronically Signed By: Zeke Guerra M.D., 08/16/2016 2:59 PMLegally authenticated by REBECCA PALACIOS 2016-08-16 14:59:[id number] 14:29:00 Test Item Value Reference Range Interpretation Comments GLUCOSE (test code = URGLU) NEGATIVE MG/DL NEG-100 BILIRUBN (test code = URBILI) SMALL NEGATIVE KETONE (test code = URKET) 80 MG/DL NEGATIVE BLOOD (test code = URBLD) NEGATIVE UR PH (test code = URPH) 6.0 5.0-7.5 PROTEIN (test code = URPRO) NEGATIVE MG/DL NEGATIVE NITRITES (test code = URNIT) NEGATIVE NEGATIVE UROBILINGEN (test code = 0.2 EU/DL 0.2-1.0 URURO) LEUKOCYT (test code = URLEU) SMALL NEGATIVE UA COLOR (test code = UA YELLOW YELLOW COLOR) CLARITY (test code = CLARITY) CLOUDY CLEAR SP GRAV (test code = URSPGRAV) 1.060 1.000-1.025 H UAMICRO (test code = UAMICRO) YES WBC (test code = URWBC) 26 /HPF 0-5 H RBC (test code = URRBC) 1 /HPF 0-2 CASTS (test code = CAST) 10 /LPF 0-3 H UR EPI (test code = EPI) 21 /LPF BACTERIA (test code = NEGATIVE NONE BACTERIA) [id number] 12:40:00 Test Item Value Reference Range Interpretation Comments SODIUM (test code = 140 MMOL/L 137-145 NA) K+ (test code = 3.9 MMOL/L 3.5-5.1 PLEASE NOTE NEW KSERUM) REFERENCE RANGE (S) IN EFFECT EFFECTIVE 010 - NEW ANALYZER (V ITROS 5600) CHLORIDE (test code 103 MMOL/L 98-107 = CL) CO2 (test code = 21 MMOL/L 22-30 L CO2) BUN (test code = 12 MG/DL 7-17 BUN) CREA (test code = 0.7 MG/DL 0.7-1.2 CREA) GLUCOSE (test code 77 MG/DL 70-99 Fasting glucose = GLUCOSE) normal <100 MG/ DL- [place] [employer] [place] [employer] recommendation* * CALCIUM (test code 8.9 MG/DL 8.4-10.2 = CABLOOD) TOTPROT (test code 7.7 G/DL 6.3-8.2 = TOTPROT) ALBUMIN (test code 4.5 G/DL 3.5-5.0 = ALBSERUM) BILITOT (test code 0.5 MG/DL 0.2-1.3 = BILITOT) AST (test code = 89 U/L 15-46 H AST) PHOSALK (test code 96 U/L 38-126 = PHOSALK) ALT (test code = 58 U/L 13-69 ALT) GFR (test code = 94 A GFR of >9 0 GFR) mL/min/1.73m2 mL/min/1.73m2 is considered norm al. [id number] 12:40:00 Test Item Value Reference Range Interpretation Comments LIPASE (test code = LIPA) 57 U/L 23-300 [id number] 12:16:00 Test Item Value Reference Range Interpretation Comments WBC (test code = 4.0 K/UL 3.5-10.9 WBC) RBC (test code = 4.14 M/UL 4.0-5.0 RBC) HGB (test code = 12.7 G/DL 11.5-15.5 HGB) HCT (test code = 38.3 % 34-46 HCT) MCV (test code = 92.5 FL 80-98 MCV) MCH (test code = 30.7 PG 28-32 MCH) MCHC (test code = 33.2 G/DL 32.5-36.5 MCHC) RDW (test code = 13.8 % 11.5-14.5 RDW) PLT (test code = 228 K/UL 150-450 PLT) MPV (test code = 9.9 FL 7.4-10.4 MPV) MANDIFF (test code = NO MANDIFF) SCAN (test code = NO SCAN) NEUT% (test code = 70.7 % 40-75 NEUT%) LYMPH% (test code = 16.8 % 24-44 L LYMPH%) MONO% (test code = 11.6 % 0-13 MONO%) EOS% (test code = 0.2 % 0-4 EOS%) BASO % (test code = 0.5 % 0-2 BASO%) IG% (test code = 0.2 % 0-1 IG% = Metam yelocytes, IG%) Myelocytes, and Promyelocytes. (Immature neutr ophils not including " bands".) > 3% IG indic ates risk of sepsis NRBC% (test code = 0 /100 WBC NRBC%) ABS NEUT (test code 2.9 K/UL 1.2-7.2 = NEUT)
[2020-11-04 20:49] LABS: Absolute Lymphocytes (CBC) 2.4 K/uL (0.7-4.9); Basophils % 1.1 % (0-1.3); Hematocrit 33.8 % (36.0-45.0); Lymphocytes % 24.4 % (15.3-44.8); MPV 8.3 fL (7.6-11.3); RBC Red Blood Cell Count 3.63 M/uL (3.86-4.86)
[2020-11-04 21:04] LABS: ALT/SGPT 47 U/L (12-78); AST/SGOT 23 U/L (15-37); Albumin 3.8 g/dL (3.4-5.0); Alkaline Phosphatase 62 U/L (45-117); BUN Blood Urea Nitrogen 9 mg/dL (7-18); Bicarbonate 26 mmol/L (21-32); Bilirubin Direct < 0.1 mg/dL (0-0.2); Bilirubin Total 0.4 mg/dL (0.2-1.0); Glucose Level 96 mg/dL (74-106); Lipase 120 U/L (73-393); Potassium 3.9 mmol/L (3.5-5.1); Protein, Total 7.6 g/dL (6.4-8.2); Sodium Level 140 mmol/L (136-145)
[2020-11-04] MEDS ORDERED: PANTOPRAZOLE 40 MG INJ ONE (21:34)
[2020-11-04] MEDS ORDERED: LIDOCAINE VISCOUS 2% SOLN 15 ML UDC ONE (21:34)
[2020-11-04] MEDS ORDERED: MAGNES/ALUMIN/SIMET 30ML UCUP ONE (21:34)
--- NOTE | 2020-11-04 21:46 | ER ---
Nurse's Notes [facility] Name: Chanell Sanders Age: 55 yrs Sex: Female : 1965 Arrival Date: 11/04/2020 Time: 18:37 Bed 20 Private MD: Diagnosis: Gastritis, unspecified, without bleeding;Esophagitis Presentation: 11/04 19:13 Chief complaint: Patient states: diagnosed with hiatal hernia yesterday at [place], em reports pain, nausea and chills, denies fever, was told to come here to possibly admit pt. Coronavirus screen: Client denies travel out of the [place] in the last 14 days. Ebola Screen: Patient negative for fever greater than or equal to 101.5 degrees Fahrenheit, and additional compatible Ebola Virus Disease symptoms Patient denies exposure to infectious person. Patient denies travel to an Ebola-affected area in the 21 days before illness onset. No symptoms or risks identified at this time. Initial Sepsis Screen: Does the patient meet any 2 criteria? No. Patient's initial sepsis screen is negative. Does the patient have a suspected source of infection? No. Patient's initial sepsis screen is negative. Risk Assessment: Do you want to hurt yourself or someone else? Patient reports no desire to harm self or others. Onset of symptoms was November 04, 2020. 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 - Social history:: Smoking status: Patient reports the use of cigarette tobacco products, denies chronic smoking, but will smoke occasionally. - Family history:: not pertinent. - Hospitalizations: : No recent hospitalization is reported. Screenin:28 Abuse screen: Denies threats or abuse. Denies injuries from another. Nutritional jm8 screening: No deficits noted. Tuberculosis screening: No symptoms or risk factors identified. Fall Risk None identified. Assessment: 21:00 General: Appears in no apparent distress. comfortable, Behavior is calm, cooperative, jm8 appropriate for age. 21:00 Pain: Complains of pain in abdomen Pain currently is 5 out of 10 on a pain scale. jm8 Quality of pain is described as burning, Pain began 2-3 days ago. Neuro: No deficits noted. Level of Consciousness is awake, alert, obeys commands, Oriented to person, place, time. Cardiovascular: No deficits noted. Respiratory: No deficits noted. Respiratory:. GI: Reports lower abdominal pain, upper abdominal pain, nausea, Pain is 5 out of 10 on a pain scale. hernia. : No deficits noted. No signs and/or symptoms were reported regarding the genitourinary system. EENT: No deficits noted. No signs and/or symptoms were reported regarding the EENT system. Derm: No deficits noted. No signs and/or symptoms reported regarding the dermatologic system. Skin is intact, is healthy with good turgor, Skin is dry, Skin is pink, warm \T\ dry. Skin temperature is warm. Musculoskeletal: No deficits noted. Vital Signs: 19:13 BP 138 / 95; Pulse 98; Resp 18; Temp 98.7(O); Pulse Ox 100% on R/A; Weight 75.3 kg; em Height 5 ft. 7 in. (170.18 cm); Pain 5/10; 19:13 Body Mass Index 26.00 (75.30 kg, 170.18 cm) em ED Course: 18:37 Patient arrived in ED. mr 19:15 Triage completed. em 19:16 Arm band placed on. em 20:13 Jesse Moore MD is Attending Physician. rn 20:38 Inserted saline lock: 22 gauge in left forearm, using aseptic technique. Blood ds4 collected. 21:45 Samantha Figueroa MD is Referral Physician. rn 22:28 Patient has correct armband on for positive identification. Bed in low position. Call jm8 light in reach. Side rails up X2. 22:28 No provider procedures requiring assistance completed. IV discontinued, intact, jm8 bleeding controlled. Administered Medications: 21:22 Drug: GI Cocktail without - (Maalox Suspension 30 ml, Lidocaine Liquid 2 % 15 jm8 ml) Route: PO; 22:29 Follow up: Response: No adverse reaction jm8 21:22 Drug: ProTONIX (pantoprazole) 40 mg Route: IVP; Site: left antecubital; vitor 22:29 Follow up: Response: No adverse reaction 8 Point of Care Testing: Guaiac: 21:18 Stool Guaiac: Negative; Stool Hemoccult Control: Pass; rn Outcome: 21:45 Discharge ordered by . rn 22:29 Discharged to home jmDottie 22:29 Discharged to home ambulatory. 22:29 Condition: good 22:29 Discharge instructions given to patient. 22:30 Patient left the ED. jm8 Signatures: Sandra Funes Edgar RN Jesse Bashir MD MD rn Swanson, Donovan ds4 Gabo Alatorre RN RN jm8
--- NOTE | 2020-11-04 21:47 | EDPHYS ---
Physician Documentation [facility] Name: Chanell Sanders Age: 55 yrs Sex: Female : 1965 Arrival Date: 11/04/2020 Time: 18:37 Bed 20 Private MD: ED Physician Jesse Moore HPI: 11/04 21:18 This 55 yrs old Female presents to ER via Ambulatory with complaints of rn abdominal burning. 21:18 The patient presents with abdominal pain in the epigastric area. rn 21:18 Onset: The symptoms/episode began/occurred 2 day(s) ago. The symptoms do not radiate. rn Associated signs and symptoms: Pertinent positives: nausea, Pertinent negatives: blood in stools, diarrhea, dysuria, fever, shortness of breath, vomiting, vomiting blood. The symptoms are described as burning. Modifying factors: The symptoms are alleviated by nothing, the symptoms are aggravated by nothing. Severity of pain: At its worst the pain was moderate in the emergency department the pain is unchanged. The patient has not experienced similar symptoms in the past. The patient has been recently seen by a physician:. Reports seen yesterday at [facility], diagnosed with hiatal hernia and gastritis/esophagitis, prescribed antacids, has f/u with GI next Monday, came in because still hurting and told to come here if still hurts. No blood in stool. No fever, no vomiting. . 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 - Social history:: Smoking status: Patient reports the use of cigarette tobacco products, denies chronic smoking, but will smoke occasionally. - Family history:: not pertinent. - Hospitalizations: : No recent hospitalization is reported. ROS: 21:18 Constitutional: Negative for fever, chills, and weight loss, Eyes: Negative for injury, rn pain, redness, and discharge, Neck: Negative for injury, pain, and swelling, Cardiovascular: Negative for chest pain, palpitations, and edema, Respiratory: Negative for shortness of breath, cough, wheezing, and pleuritic chest pain, Abdomen/GI: + abd pain Back: Negative for injury and pain, MS/Extremity: Negative for injury and deformity, Skin: Negative for injury, rash, and discoloration, Neuro: Negative for headache, weakness, numbness, tingling, and seizure. Exam: 21:18 Constitutional: This is a well developed, well nourished patient who is awake, alert, rn and in no acute distress. Head/Face: Normocephalic, atraumatic. Eyes: Periorbital areas with no swelling, redness, or edema. Cardiovascular: Regular rate and rhythm . No pulse deficits. Respiratory: No increased work of breathing, no retractions or nasal flaring. Abdomen/GI: soft, + mild epigastric tenderness, no rebound Skin: Warm, dry MS/ Extremity: Pulses equal, no cyanosis. Neuro: Awake and alert, GCS 15 Vital Signs: 19:13 BP 138 / 95; Pulse 98; Resp 18; Temp 98.7(O); Pulse Ox 100% on R/A; Weight 75.3 kg; em Height 5 ft. 7 in. (170.18 cm); Pain 5/10; 19:13 Body Mass Index 26.00 (75.30 kg, 170.18 cm) em MDM: 20:13 Patient medically screened. rn 21:44 Differential diagnosis: gastritis, gastroesophageal reflux disease, GI Bleed, rn non-specific abd pain, pancreatitis, Peptic Ulcer Disease. Data reviewed: vital signs, nurses notes, old medical records, lab test result(s), and as a result, I will discharge patient. Counseling: I had a detailed discussion with the patient and/or guardian regarding: the historical points, exam findings, and any diagnostic results supporting the discharge/admit diagnosis, lab results, radiology results, the need for outpatient follow up, to return to the emergency department if symptoms worsen or persist or if there are any questions or concerns that arise at home. Response to treatment: the patient's symptoms have mildly improved after treatment, and as a result, I will discharge patient. Special discussion: Based on the patient's Hx, exam, and Dx evaluation, there is no indication for emergent surgery or inpatient Tx. It is understood by the patient/guardian that if the Sx's persist or worsen they need to return immediately for re-evaluation. I discussed with the patient/guardian in detail that at this point there is no indication for admission to the hospital. It is understood, however, that if the symptoms persist or worsen the patient needs to return immediately for re-evaluation. Based on the history and exam findings, there is no indication for further emergent testing or inpatient evaluation. I discussed with the patient/guardian the need to see the telephone operator receptionist for further evaluation of the symptoms. ED course: Pt improved, reviewed ct and labs from yesterday, no acute findings, appendix and gallbladder are out, no acute findings in blood today, will dc home with GI follow up as scheduled. . 11/04 20:24 Order name: Basic Metabolic Panel; Complete Time: 21:12 rn 11/04 20:24 Order name: CBC with Diff; Complete Time: 21:12 rn 11/04 20:24 Order name: Hepatic Function; Complete Time: 21:12 rn 11/04 20:24 Order name: Lipase; Complete Time: 21:12 rn 11/04 20:24 Order name: IV Saline Lock; Complete Time: 20:41 rn 11/04 20:24 Order name: Labs collected and sent; Complete Time: 20:41 rn Administered Medications: 21:22 Drug: GI Cocktail without - (Maalox Suspension 30 ml, Lidocaine Liquid 2 % 15 jm8 ml) Route: PO; 22:29 Follow up: Response: No adverse reaction [facility] 21:22 Drug: ProTONIX (pantoprazole) 40 mg Route: IVP; Site: left antecubital; jm8 22:29 Follow up: Response: No adverse reaction 8 Point of Care Testing: Guaiac: 21:18 Stool Guaiac: Negative; Stool Hemoccult Control: Pass; rn Disposition: 11/04/20 21:45 Discharged to Home. Impression: Gastritis, unspecified, without bleeding, Esophagitis. - Condition is Stable. - Discharge Instructions: Gastritis, Adult, Esophagogastroduodenoscopy. - Medication Reconciliation Form, Thank You Letter, Antibiotic Education, Prescription Opioid Use form. - Follow up: Samantha Figueroa MD; When: As needed; Reason: Recheck today's complaints, Re-evaluation by your physician. - Problem is an ongoing problem. - Symptoms have improved. Signatures: Dispatcher [employer] Pankaj Mckinney, RN Jesse Bashir MD MD rn Malcaba, Joseph, RN RN jm8 Corrections: (The following items were deleted from the chart) 22:30 21:45 11/04/2020 21:45 Discharged to Home. Impression: Gastritis, unspecified, without jm8 bleeding; Esophagitis. Condition is Stable. Forms are Medication Reconciliation Form, Thank You Letter, Antibiotic Education, Prescription Opioid Use. Follow up: Samantha Figueroa; When: As needed; Reason: Recheck today's complaints, Re-evaluation by your physician. Problem is an ongoing problem. Symptoms have improved. rn
[2020-11-04 22:48] VITALS: BP 138/95; TEMP 98.7; O2SAT 100
== END 2020-11-04 22:30 | disposition home or self-care (01) ==
LOC: ER 18:32
DX: K29.70 Gastritis, unspecified, without bleeding (principal); K20.90 Esophagitis, unspecified without bleeding; F17.210 Nicotine dependence, cigarettes, uncomplicated
CPT/HCPCS: 85025; 80048; 36415; 80076; 83690; 96374; 99283; C9113